=== PATIENT | female | born 1965 | race Caucasian/White ===

== ENCOUNTER 2017-03-14 10:36 | Inpatient (IN) | payer MEDICAID ==
[~2017-03-14] VITALS: Ht 165.1 cm; Wt 121.5 kg
[~2017-03-14 10:36] MED LIST: AMLO10TA2 PO; COUMADIN; ENAL20TA70 PO; IBUP600T27 PO; NORCO; PAXIL PO; RABE20TA5 PO; TRAZ100T2 PO
[2017-03-14 12:16] LABS: Urine Blood Negative /uL (Negative); Urine Color Red (Yellow); Urine Glucose Normal (Normal); Urine Ketone Negative (Negative); Urine Mucus FEW (None Seen); Urine Nitrite Negative (Negative); Urine RBC 3 /hpf (0 - 4); Urine Squamous Epithelial Cell MANY /hpf (<5)
[2017-03-14 12:32] LABS: Urine Bilirubin POSITIVE (Negative)
[2017-03-14 12:37] LABS: Basophils # (auto) 0 uL; Basophils % (auto) 0.4 % (0.0-2.0); CONDITION Y; Eosinophils # (auto) 0 uL; Eosinophils % (auto) 0.3 % (0.0-7.0); Hematocrit 39.6 % (36.0-46.0); Hemoglobin 13.3 g/dL (12.2-16.2); Lymphocytes # (auto) 1.2 uL; Lymphocytes % (auto) 15.2 % (10.0-50.0); Mean Corpuscular Hemoglobin 31.3 pg (28.0-32.0); Mean Corpuscular Hgb Conc. 33.7 g/dL (32.0-36.0); Mean Corpuscular Volume 92.9 fL (80.0-100.0); Mean Platelet Volume 8.6 fL (7.4-10.4); Monocytes # (auto) 0.4 uL; Monocytes % (auto) 5.5 % (0.0-12.0); Neutrophils # (auto) 6.4 uL; Neutrophils % (auto) 78.6 % (37.0-80.0); Platelet Count (auto) 333 10^3/uL (140-450); Red Cell Distribution Width 13.5 % (11.6-16.0); White Blood Cell 8.1 10^3/uL (4.4-10.8)
[2017-03-14 12:39] LABS: INR 1.05 (0.9-1.15); Partial Thromboplastin Time 29.9 sec (22.64-33.71); Prothrombin Time 11.4 sec (9.37-12.3)
[2017-03-14 12:49] LABS: BUN/Creatinine Ratio 11.1; Bilirubin, Total 0.3 mg/dL (0.2-1.0); Calcium 8.7 mg/dL (8.5-10.1); Magnesium 1.9 mg/dL (1.6-2.6); Potassium 3.3 mmol/L (3.5-5.1); Total Protein 6.9 g/dL (6.4-8.2)
[2017-03-14] MEDS ORDERED: cefTRIAXone 1GM/50ML D5W 50 ML IV ONE (13:00)
[2017-03-14] MEDS ORDERED: ENOXAPARIN SOD 100 MG/1 ML SYRINGE SC ONE (13:00)
[2017-03-14] MEDS ORDERED: ALBUTEROL SULF 2.5 MG/0.5ML(0.5%) NEB SOLN NEB PRN (13:15)
[2017-03-14] MEDS ORDERED: ZOLPIDEM TARTRATE 5 MG TAB PO PRN (13:15)
[2017-03-14] MEDS ORDERED: ALPRAZolam 0.5 MG TAB PO PRN (13:15)
[2017-03-14] MEDS ORDERED: SUMAtriptan SUCCINATE 25 MG TAB PO PRN (13:15)
[2017-03-14] MEDS: GABAPENTIN 100 MG CAP PO SCH ×2 (13:28→22:25)
[2017-03-14] MEDS: CLINDAMYCIN 300MG IV 50 ML IV SCH ×2 (13:28→22:24)
[2017-03-14] MEDS: ENOXAPARIN SOD 40 MG/0.4 ML SYRINGE SC SCH (13:29)
[2017-03-14] MEDS ORDERED: DOCUSATE SOD 100 MG CAP PO PRN (13:30)
[2017-03-14] MEDS ORDERED: MORPHINE SULF INJ 2 MG/ML SYRINGE 1ML IV PRN (13:30)
[2017-03-14] MEDS ORDERED: HYDROcodone-ACET 5/325MG TAB PO PRN (13:30)
[2017-03-14] MEDS ORDERED: ACETAMINOPHEN 325 MG TAB PO PRN (13:30)
[2017-03-14] MEDS ORDERED: ONDANSETRON HCL 4 MG/2 ML VIAL IV PRN (13:30)
[2017-03-14] MEDS ORDERED: POTASSIUM CHLORIDE 8 MEQ TAB PO ONE (13:30)
[2017-03-14] MEDS ORDERED: ENALAPRIL MALEATE 10 MG TAB PO ONE (13:45)
[2017-03-14] MEDS ORDERED: amLODIPine BESYLATE 5 MG TAB PO ONE (13:45)
[2017-03-14 13:47] LABS: B-Type Natriuretic Peptide 16.06 pg/mL (0-100)
[2017-03-14] MEDS: SODIUM CHLOR 0.9% PF (SALINE LOCK) 10ML VIAL IV SCH ×2 (14:22→22:24)
[2017-03-14 14:57] LABS: Temperature: 24.6 C (20.0-25.0)
[2017-03-14] MEDS: BOOST PLUS 8 ounce PO SCH (18:29)
[2017-03-14] MEDS: ENALAPRIL MALEATE 10 MG TAB PO SCH (22:00)
[2017-03-14] MEDS ORDERED: FAMOTIDINE 20 MG TAB PO SCH (22:00)
[2017-03-15 01:39] VITALS: BP 111/59
[2017-03-15] MEDS ORDERED: SUMA50TA16 PO (02:57)
[2017-03-15] MEDS ORDERED: EST0625T PO (02:59)
[2017-03-15] MEDS ORDERED: GABA-494 PO (03:01)
[2017-03-15] MEDS ORDERED: HYDR12.56 PO (03:02)
[2017-03-15] MEDS ORDERED: ZOLP5TAB5 PO (03:05)
[2017-03-15] MEDS ORDERED: ALPR1TAB7 PO (03:06)
[2017-03-15 05:30] VITALS: BP 114/68
[2017-03-15] MEDS: CLINDAMYCIN 300MG IV 50 ML IV SCH ×3 (05:48→22:21)
[2017-03-15] MEDS: SODIUM CHLOR 0.9% PF (SALINE LOCK) 10ML VIAL IV SCH ×3 (05:49→22:23)
[2017-03-15] MEDS: GABAPENTIN 100 MG CAP PO SCH ×3 (05:49→22:22)
[2017-03-15 06:18] LABS: Basophils # (auto) 0 uL; Basophils % (auto) 0.5 % (0.0-2.0); CONDITION Y; Eosinophils # (auto) 0.2 uL; Hematocrit 37.7 % (36.0-46.0); Hemoglobin 12.8 g/dL (12.2-16.2); Lymphocytes # (auto) 1.7 uL; Lymphocytes % (auto) 21.4 % (10.0-50.0); Mean Corpuscular Hemoglobin 31.8 pg (28.0-32.0); Mean Corpuscular Hgb Conc. 33.9 g/dL (32.0-36.0); Mean Corpuscular Volume 93.9 fL (80.0-100.0); Mean Platelet Volume 8.8 fL (7.4-10.4); Monocytes # (auto) 0.7 uL; Monocytes % (auto) 9.1 % (0.0-12.0); Neutrophils # (auto) 5.2 uL; Platelet Count (auto) 321 10^3/uL (140-450); Red Cell Distribution Width 13.8 % (11.6-16.0); White Blood Cell 7.8 10^3/uL (4.4-10.8)
[2017-03-15 06:38] LABS: Potassium 4.1 mmol/L (3.5-5.1)
[2017-03-15 06:42] LABS: Albumin 2.8 g/dL (3.4-5.0); BUN/Creatinine Ratio 13.8; Calcium 8.5 mg/dL (8.5-10.1)
[2017-03-15 06:56] LABS: Bilirubin, Total 0.3 mg/dL (0.2-1.0); Total Protein 6.4 g/dL (6.4-8.2)
[2017-03-15] MEDS: BOOST PLUS 8 ounce PO SCH ×3 (08:03→17:47)
[2017-03-15 09:00] VITALS: BP 126/74
[2017-03-15] MEDS: HCTZ 25 MG TAB PO SCH (09:16)
[2017-03-15] MEDS: MULTIPLE VITAMIN TAB PO SCH (09:17)
[2017-03-15] MEDS: ENOXAPARIN SOD 40 MG/0.4 ML SYRINGE SC SCH (09:17)
[2017-03-15] MEDS: PANTOPRAZOLE 40 MG TAB PO SCH (09:17)
[2017-03-15] MEDS: PARoxetine 20 MG TAB PO SCH (09:18)
[2017-03-15] MEDS: ENALAPRIL MALEATE 10 MG TAB PO SCH ×3 (09:18→22:23)
[2017-03-15] MEDS: cefTRIAXone 1GM/50ML D5W 50 ML IV SCH (09:19)
[2017-03-15] MEDS: amLODIPine BESYLATE 5 MG TAB PO SCH (09:19)
[2017-03-15] MEDS: POTASSIUM CHLORIDE 8 MEQ TAB PO SCH (09:19)
[2017-03-15] MEDS: PREMARIN 0.625 MG PO SCH (09:19)
[2017-03-15] MEDS ORDERED: ESTROGEN CONJ 0.3 MG TAB PO SCH (10:00)
[2017-03-15 13:00] VITALS: BP 131/93
[2017-03-15 22:00] VITALS: BP 115/63
[2017-03-16 05:00] VITALS: BP 96/50
[2017-03-16] MEDS: SODIUM CHLOR 0.9% PF (SALINE LOCK) 10ML VIAL IV SCH ×2 (06:00→14:00)
[2017-03-16] MEDS: CLINDAMYCIN 300MG IV 50 ML IV SCH ×2 (06:32→14:00)
[2017-03-16] MEDS: GABAPENTIN 100 MG CAP PO SCH ×2 (06:32→14:00)
[2017-03-16] MEDS: BOOST PLUS 8 ounce PO SCH ×2 (08:00→12:00)
[2017-03-16 09:00] VITALS: BP_SYST 119; BP_SYST 130; BP_DIAS 62; BP_DIAS 89
[2017-03-16] MEDS: ENOXAPARIN SOD 40 MG/0.4 ML SYRINGE SC SCH (09:15)
[2017-03-16] MEDS: cefTRIAXone 1GM/50ML D5W 50 ML IV SCH (09:15)
[2017-03-16] MEDS: POTASSIUM CHLORIDE 8 MEQ TAB PO SCH (09:16)
[2017-03-16] MEDS: PANTOPRAZOLE 40 MG TAB PO SCH (09:16)
[2017-03-16] MEDS: PARoxetine 20 MG TAB PO SCH (09:16)
[2017-03-16] MEDS: MULTIPLE VITAMIN TAB PO SCH (09:21)
[2017-03-16] MEDS: PREMARIN 0.625 MG PO SCH (09:42)
[2017-03-16] MEDS: ENALAPRIL MALEATE 10 MG TAB PO SCH (10:00)
[2017-03-16] MEDS: HCTZ 25 MG TAB PO SCH (10:00)
[2017-03-16] MEDS: amLODIPine BESYLATE 5 MG TAB PO SCH (10:00)
[2017-03-16 13:00] VITALS: BP 116/85
== END 2017-03-16 17:25 | disposition home or self-care (01) | DRG 383 ==
LOC: ER 10:36 → OVERFLOW 10:37 → EAST 16:56 → WEST WING 19:21
PROVIDERS: ADMIT Internal Medicine; ATTEND Internal Medicine
DX: L03.116 Cellulitis of left lower limb (principal); E44.0 Moderate protein-calorie malnutrition; N18.3 Chronic kidney disease, stage 3 (moderate); Z68.41 Body mass index [BMI] 40.0-44.9, adult; E66.01 Morbid (severe) obesity due to excess calories; I89.0 Lymphedema, not elsewhere classified; E87.6 Hypokalemia; I12.9 Hypertensive chronic kidney disease with stage 1 through stage 4 chronic kidney disease, or unspecified chronic kidney disease; F32.9 Major depressive disorder, single episode, unspecified; J45.909 Unspecified asthma, uncomplicated; N39.0 Urinary tract infection, site not specified; K21.9 Gastro-esophageal reflux disease without esophagitis; F41.9 Anxiety disorder, unspecified; Z90.710 Acquired absence of both cervix and uterus; Z98.890 Other specified postprocedural states; Z88.8 Allergy status to other drugs, medicaments and biological substances; Z88.6 Allergy status to analgesic agent; Z85.41 Personal history of malignant neoplasm of cervix uteri; Z86.718 Personal history of other venous thrombosis and embolism; Z86.73 Personal history of transient ischemic attack (TIA), and cerebral infarction without residual deficits; Z83.3 Family history of diabetes mellitus; Z82.49 Family history of ischemic heart disease and other diseases of the circulatory system; Z80.9 Family history of malignant neoplasm, unspecified; Z88.1 Allergy status to other antibiotic agents; Z91.041 Radiographic dye allergy status; Z79.899 Other long term (current) drug therapy; Z85.89 Personal history of malignant neoplasm of other organs and systems; Z90.49 Acquired absence of other specified parts of digestive tract; Z80.1 Family history of malignant neoplasm of trachea, bronchus and lung
CPT/HCPCS: 36415; 71010; 80053; 81001; 83605; 83735; 83880; 85025; 85379; 85610; 85730; 87040; 87086; 93005; 94761; 96365; 96372; J0696; J3490

== ENCOUNTER 2019-01-12 17:26 | Emergency (ER) | payer MEDICAID ==
[~2019-01-12] VITALS: Ht 177.8 cm; Wt 127.0 kg
[~2019-01-12 17:26] MED LIST changes: +ALPR1TAB7 PO; +AMLO10TA12 PO; -AMLO10TA2 PO; +EST0625T PO; +GABA100C9 PO; +HYDR12.56 PO; +SUMA50TA16 PO; +ZOLP5TAB5 PO
[2019-01-12] MEDS ORDERED: METOCLOPRAMIDE HCL 5MG/ml INJ 2ml VIAL ONE (18:35)
[2019-01-12] MEDS ORDERED: METOCLOPRAMIDE HCL 5MG/ml INJ 2ml VIAL IV ONE (18:45)
[2019-01-12] MEDS ORDERED: ONDANSETRON HCL 4 MG/2 ML VIAL IV ONE (20:00)
[2019-01-12] MEDS ORDERED: SODIUM CHLORIDE 0.9% 1,000 ML IV ONE (20:00)
[2019-01-12] MEDS ORDERED: SODIUM CHLORIDE 0.9% 500 ML IV ONE (20:00)
[2019-01-12] MEDS ORDERED: MORPHINE SULF INJ 2 MG/ML SYRINGE 1ML IV ONE (20:00)
[2019-01-12 21:02] LABS: Basophils # (auto) 0.1 uL; Basophils % (auto) 0.6 % (0.0-2.0); Eosinophils # (auto) 0.2 uL; Eosinophils % (auto) 1.7 % (0.0-7.0); Hematocrit 40.9 % (36.0-46.0); Hemoglobin 13.6 g/dL (12.2-16.2); Lymphocytes # (auto) 1.3 uL; Lymphocytes % (auto) 12.7 % (10.0-50.0); Mean Corpuscular Hemoglobin 30.5 pg (28.0-32.0); Mean Corpuscular Hgb Conc. 33.3 g/dL (32.0-36.0); Mean Corpuscular Volume 91.7 fL (80.0-100.0); Monocytes # (auto) 0.4 uL; Monocytes % (auto) 3.6 % (0.0-12.0); Neutrophils # (auto) 8.3 uL; Neutrophils % (auto) 81.4 % (37.0-80.0); Platelet Count (auto) 312 10^3/uL (140-450); Red Blood Cells 4.46 10^6/uL (4.0-5.20); Red Cell Distribution Width 13.6 % (11.8-14.3); White Blood Cell 10.2 10^3/uL (4.4-10.8)
[2019-01-12 21:23] LABS: Albumin 3.4 g/dL (3.4-5.0); Calcium 9.1 mg/dL (8.5-10.1)
[2019-01-12 21:27] LABS: BUN/Creatinine Ratio 19.6; Bilirubin, Total 0.6 mg/dL (0.2-1.0); Total Protein 7.2 g/dL (6.4-8.2)
[2019-01-13] MEDS ORDERED: ONDANSETRON HCL 4 MG/2 ML VIAL ONE (00:13)
[2019-01-13] MEDS ORDERED: ONDANSETRON HCL 4 MG/2 ML VIAL IV ONE (00:45)
[2019-01-13 01:12] VITALS: BP 149/86
== END 2019-01-13 02:07 | disposition home or self-care (01) ==
LOC: ER 17:26
DX: G43.909 Migraine, unspecified, not intractable, without status migrainosus (principal); R42 Dizziness and giddiness; J45.909 Unspecified asthma, uncomplicated; K21.9 Gastro-esophageal reflux disease without esophagitis; I10 Essential (primary) hypertension; F41.9 Anxiety disorder, unspecified; F12.10 Cannabis abuse, uncomplicated; F15.10 Other stimulant abuse, uncomplicated; Z90.710 Acquired absence of both cervix and uterus
CPT/HCPCS: 36415; 70450; 80053; 85025; 94761; 96361; 96374; 96375; 96376; 99284; J2270; J2405; J2765; J7030; J7040

== ENCOUNTER 2020-03-14 17:50 | Inpatient (IN) | payer MEDICAID ==
[~2020-03-14] VITALS: Ht 170.2 cm; Wt 143.6 kg
[~2020-03-14 17:50] MED LIST changes: -AMLO10TA12 PO; +AMLO10TA13 PO; +AMOX500T86 PO; -COUMADIN; -ENAL20TA70 PO; +ENAL20TA8 PO; -IBUP600T27 PO; -NORCO; -PAXIL PO; +RIV20T PO; -TRAZ100T2 PO; +TRAZ100T3 PO; -ZOLP5TAB5 PO
[2020-03-14 19:35] LABS: Basophils # (auto) 0.1 10 ^3/uL (0-0.2); Basophils % (auto) 0.5 % (0.0-2.0); Eosinophils # (auto) 0 10 ^3/uL (0-0.8); Eosinophils % (auto) 0.1 % (0.0-7.0); Hematocrit 44.3 % (36.0-46.0); Hemoglobin 14.7 g/dL (12.2-16.2); Lymphocytes # (auto) 0.6 10 ^3/uL (0.4-5.4); Lymphocytes % (auto) 4.5 % (10.0-50.0); Mean Corpuscular Hemoglobin 31.1 pg (28.0-32.0); Mean Corpuscular Hgb Conc. 33.2 g/dL (32.0-36.0); Mean Corpuscular Volume 93.6 fL (80.0-100.0); Monocytes # (auto) 0.3 10 ^3/uL (0-1.3); Monocytes % (auto) 2.3 % (0.0-12.0); Neutrophils # (auto) 13.2 10 ^3/uL (1.6-8.6); Neutrophils % (auto) 92.6 % (37.0-80.0); Platelet Count (auto) 318 10^3/uL (140-450); Red Blood Cells 4.73 10^6/uL (4.0-5.20); Red Cell Distribution Width 13.6 % (11.8-14.3); White Blood Cell 14.2 10^3/uL (4.4-10.8)
[2020-03-14 19:45] LABS: Albumin 3.7 g/dL (3.4-5.0); BUN/Creatinine Ratio 14.8; Potassium 4.2 mmol/L (3.5-5.1)
[2020-03-14 19:48] LABS: Bilirubin, Total 0.6 mg/dL (0.2-1.0); Total Protein 8.3 g/dL (6.4-8.2)
[2020-03-15] MEDS ORDERED: SODIUM CHLORIDE 0.9% 1,000 ML IV ONE (01:15)
[2020-03-15] MEDS ORDERED: ONDANSETRON HCL 4 MG/2 ML VIAL IV ONE (01:15)
[2020-03-15] MEDS ORDERED: MORPHINE SULFATE 4 MG/ML SYR/VIAL IV ONE (01:15)
[2020-03-15] MEDS ORDERED: PIPERACILLIN-TAZOB 3.375GM 100 ML IV ONE (05:15)
[2020-03-15] MEDS ORDERED: ALBUTEROL SULF 2.5 MG/0.5ML(0.5%) NEB SOLN NEB PRN (05:45)
[2020-03-15] MEDS ORDERED: HYDROcodone-ACET 5/325MG TAB PO PRN (05:45)
[2020-03-15] MEDS ORDERED: IPRATROPIUM BROM 0.5 MG/2.5ML INH SOL NEB PRN (05:45)
[2020-03-15] MEDS ORDERED: TEMAZEPAM 15 MG CAP PO PRN (05:45)
[2020-03-15] MEDS ORDERED: METOCLOPRAMIDE HCL 5MG/ml INJ 2ml VIAL IV PRN (05:45)
[2020-03-15] MEDS ORDERED: LORazepam 0.5 MG TAB PO PRN (05:45)
[2020-03-15] MEDS ORDERED: MORPHINE SULF INJ 2 MG/ML SYRINGE 1ML IV PRN (05:45)
[2020-03-15] MEDS ORDERED: DOCUSATE SOD 100 MG CAP PO PRN (05:45)
[2020-03-15] MEDS ORDERED: SODIUM CHLORIDE 0.9% 1,000 ML IV SCH (05:45)
[2020-03-15 06:11] VITALS: BP 116/66
[2020-03-15 07:47] LABS: Basophils # (auto) 0 10 ^3/uL (0-0.2); Basophils % (auto) 0.4 % (0.0-2.0); Eosinophils # (auto) 0 10 ^3/uL (0-0.8); Eosinophils % (auto) 0.1 % (0.0-7.0); Hematocrit 40.7 % (36.0-46.0); Hemoglobin 13.5 g/dL (12.2-16.2); Lymphocytes # (auto) 0.9 10 ^3/uL (0.4-5.4); Lymphocytes % (auto) 7.7 % (10.0-50.0); Mean Corpuscular Hemoglobin 31.3 pg (28.0-32.0); Mean Corpuscular Hgb Conc. 33.2 g/dL (32.0-36.0); Monocytes # (auto) 0.5 10 ^3/uL (0-1.3); Monocytes % (auto) 4.1 % (0.0-12.0); Neutrophils # (auto) 9.7 10 ^3/uL (1.6-8.6); Neutrophils % (auto) 87.7 % (37.0-80.0); Nucleated Red Blood Cells % 0.1 %; Platelet Count (auto) 272 10^3/uL (140-450); Red Blood Cells 4.33 10^6/uL (4.0-5.20); Red Cell Distribution Width 13.7 % (11.8-14.3)
[2020-03-15 07:55] LABS: Calcium 6.8 mg/dL (8.5-10.1)
[2020-03-15 07:58] LABS: BUN/Creatinine Ratio 12.3
[2020-03-15] MEDS: CLINDAMYCIN 600MG IV 50 ML IV SCH ×4 (09:11→23:47)
--- NOTE | 2020-03-15 09:50 | NUR ---
MS admit from ER: DAYANNA NGUYEN admitted to [facility] after SBAR received. Patient oriented to AYDEE AQUINO RN primary RN, unit, room, bed, and unit policies regarding patient care and visiting hours. Patient weighed by bed scale and encouraged to call if they need something. All questions and concerns addressed, patient verbalized understanding. CALL LIGHT WITHIN REACH.
[2020-03-15] MEDS ORDERED: LISINOPRIL 20 MG TAB PO SCH (10:00)
--- NOTE | 2020-03-15 10:20 | NUR ---
ADMISSION ASSESSMENT PT STATES "I DO NOT HAVE INSURANCE AT THE TIME AND I AM UNABLE TO FILL ANY OF MY MEDICATION" Addendum: 03/15/20 at 1021 by SHIRA TIM RN RN PRIMARY RN AWARE AND SOCIAL SERVICE CONSULT INITIATED
[2020-03-15] MEDS: cefTRIAXone 1GM/50ML D5W 50 ML IV SCH (10:28)
[2020-03-15 13:00] VITALS: BP 114/60
[2020-03-15] MEDS ORDERED: ENOXAPARIN SOD 150 MG/1 ML SYRINGE SC ONE (13:15)
[2020-03-15] MEDS: ACETAMINOPHEN 325 MG TAB PO PRN (14:08)
--- NOTE | 2020-03-15 15:09 | NUR ---
Patient provided with specimen cup for urine sample
[2020-03-15 16:34] VITALS: BP 109/62
--- NOTE | 2020-03-15 18:44 | NUR ---
CLOSING NOTE: Patient resting in bed. No S/S of distress. Care endorsed to NOC RN.
--- NOTE | 2020-03-15 19:30 | NUR ---
OPENING NOTE Received report from day shift RN. Patient is A&O X's 4 with no s/s of distress and reports no pain at the moment. Respirations are even and unlabored. Collected urine sample at this time and will send it to lab through [employer]t system. Educated patient on POC and to use call light when in need of assistance. Patient verbalized understanding. Bed is in lowest/locked position with side rails up X's 2 and call light is within reach of patient. Will continue care.
[2020-03-15 20:24] LABS: Urine Bacteria FEW /hpf (None Seen); Urine Blood Negative /uL (Negative); Urine Mucus FEW (None Seen); Urine Specific Gravity 1.019 (1.001-1.035); Urine WBC 27 /hpf (0 - 5)
[2020-03-15 20:27] LABS: Alcohol, Urine < 3.0 mg/dL (0-10); Amphetamine Screen, Urine NEGATIVE (NEGATIVE); Barbiturate Scree,Urine NEGATIVE (NEGATIVE); Benzodiazephine Screen, Urine NEGATIVE (NEGATIVE); Cannabinoid Screen, Urine NEGATIVE (NEGATIVE); Cocaine Screen, Urine NEGATIVE (NEGATIVE); Opiate Scree,Urine NEGATIVE (NEGATIVE); Phencyclidine Screen, Urine NEGATIVE (NEGATIVE)
[2020-03-15] MEDS: FAMOTIDINE 20 MG TAB PO SCH (21:14)
[2020-03-15] MEDS: ENOXAPARIN SOD 150 MG/1 ML SYRINGE SC SCH (21:16)
--- NOTE | 2020-03-15 21:55 | NUR ---
Respiratory note: ASSEDDED PATIENT FOR PRN . PT WAS AWAKE AND ALER, NO RESP DISTRESS NOTED. HR 72, RR 16, SPO2 Addendum: 03/15/20 at 2254 by Hilda Whaley RT ASSESSED PT FOR PRN TX PT WAS AWAKE AND ALERT, NO RESP DISTRESS NOTED. SPO2 95% ON ROOM AIR, RR 16, HR 72. BS ARE CLEAR, NO INDICATION FOR TX AT THIS TIME.
[2020-03-15 22:00] VITALS: BP 101/58
--- NOTE | 2020-03-15 23:10 | NUR ---
CRITICAL LAB- POSITIVE BLOOD CULTURE GRAM POSITIVE COCCI IN CHAINS. WILL CALL HOSPITALIST
--- NOTE | 2020-03-15 23:17 | NUR ---
RETURNED CALL Dr. Rendon informed of positive blood culture. No new orders received
[2020-03-16 05:00] VITALS: BP 117/49
[2020-03-16] MEDS: CLINDAMYCIN 600MG IV 50 ML IV SCH ×4 (05:40→23:56)
[2020-03-16 06:01] LABS: Basophils # (auto) 0 10 ^3/uL (0-0.2); Basophils % (auto) 0.4 % (0.0-2.0); Eosinophils # (auto) 0.1 10 ^3/uL (0-0.8); Eosinophils % (auto) 1.6 % (0.0-7.0); Hematocrit 40.3 % (36.0-46.0); Lymphocytes # (auto) 1.6 10 ^3/uL (0.4-5.4); Lymphocytes % (auto) 20.8 % (10.0-50.0); Mean Corpuscular Hemoglobin 30.5 pg (28.0-32.0); Mean Corpuscular Hgb Conc. 32.2 g/dL (32.0-36.0); Mean Corpuscular Volume 94.7 fL (80.0-100.0); Monocytes # (auto) 0.5 10 ^3/uL (0-1.3); Monocytes % (auto) 6.6 % (0.0-12.0); Neutrophils # (auto) 5.6 10 ^3/uL (1.6-8.6); Neutrophils % (auto) 70.6 % (37.0-80.0); Nucleated Red Blood Cells % 0.1 %; Platelet Count (auto) 244 10^3/uL (140-450); Red Blood Cells 4.25 10^6/uL (4.0-5.20); White Blood Cell 7.9 10^3/uL (4.4-10.8)
[2020-03-16 06:18] LABS: Potassium 3.8 mmol/L (3.5-5.1)
--- NOTE | 2020-03-16 06:28 | NUR ---
Respiratory note: HR 74, RR 16, SPO2 93% ON RA, BS CLEAR AND SLIGHTLY DIMINISHED. PRN MED NEB TX NOT INDICATED AT THIS TIME. NO SIGNS OR SYMPTOMS OF RESPIRATORY DISTRESS NOTED AT THIS TIME.
[2020-03-16 06:29] LABS: BUN/Creatinine Ratio 13.3; Calcium 8.1 mg/dL (8.5-10.1)
--- NOTE | 2020-03-16 07:00 | NUR ---
Opening Shift Note: Assumed care of patient. Patient sleeping at this time. No S/S of distress/SOB or pain. Bed in lowest locked position, side rails up x 2, call light within reach. Sitter at bedside for patient safety. Patient will be instructed on POC and to call for assist PRN, will continue to monitor for changes Q1hr and PRN. Addendum: 03/16/20 at 0708 by AYDEE AQUINO RN RN Wrong patient. No sitter at bedside.
[2020-03-16 08:49] VITALS: BP 97/61
[2020-03-16] MEDS: FAMOTIDINE 20 MG TAB PO SCH ×2 (10:10→21:38)
[2020-03-16] MEDS: cefTRIAXone 1GM/50ML D5W 50 ML IV SCH (10:11)
[2020-03-16] MEDS: ENOXAPARIN SOD 150 MG/1 ML SYRINGE SC SCH ×2 (10:11→21:37)
[2020-03-16] MEDS ORDERED: SODIUM CHLORIDE 0.9% 1,000 ML IV ONE (12:30)
[2020-03-16] MEDS: ACETAMINOPHEN 325 MG TAB PO PRN ×2 (12:37→21:38)
[2020-03-16 13:00] VITALS: BP 131/75
[2020-03-16 17:00] VITALS: BP 96/61
--- NOTE | 2020-03-16 18:47 | NUR ---
CLOSING NOTE: patient resting in bed. No S/S of distress. Care endorsed.
[2020-03-16 22:00] VITALS: BP 103/67
[2020-03-17 05:28] VITALS: BP_SYST 108; BP_SYST 138; BP_DIAS 57; BP_DIAS 63
[2020-03-17] MEDS: CLINDAMYCIN 600MG IV 50 ML IV SCH ×4 (05:57→23:59)
[2020-03-17 06:21] LABS: Potassium 4.1 mmol/L (3.5-5.1)
[2020-03-17 06:23] LABS: BUN/Creatinine Ratio 15.4
--- NOTE | 2020-03-17 07:45 | NUR ---
Opening Note Received report from post hole digger RN. Patient is awake, alert and oriented x4. No signs or symptoms of distress noted at this time. Patient denies pain or shortness of breath at this time. Reviewed plan of care with patient, patient verbalized understanding. Bed in low and locked position, call light within reach. Will continue to monitor Q1 hour and PRN.
[2020-03-17] MEDS: ENOXAPARIN SOD 150 MG/1 ML SYRINGE SC SCH ×2 (09:24→21:51)
[2020-03-17] MEDS: cefTRIAXone 1GM/50ML D5W 50 ML IV SCH (09:24)
[2020-03-17] MEDS: FAMOTIDINE 20 MG TAB PO SCH ×2 (09:25→21:51)
[2020-03-17] MEDS: ONDANSETRON HCL 4 MG/2 ML VIAL IV PRN (09:44)
--- NOTE | 2020-03-17 09:45 | NUR ---
Nausea Patient complains of feeling nauseous and is requesting medications. Will medicate per orders. Will continue to monitor Q1 hour and PRN.
--- NOTE | 2020-03-17 11:10 | NUR ---
Dr. Mario Albetro Espitia at bedside MD at bedside discussing plan of care with patient and this RN. No new orders received. Will continue to monitor Q1 hour and PRN.
--- NOTE | 2020-03-17 19:02 | NUR ---
Closing Note Report given to lath hand RN. No signs or symptoms of distress noted at this time.
[2020-03-17 22:00] VITALS: BP 123/79
[2020-03-18 05:00] VITALS: BP 117/70
[2020-03-18] MEDS: CLINDAMYCIN 600MG IV 50 ML IV SCH (05:56)
[2020-03-18] MEDS: ONDANSETRON HCL 4 MG/2 ML VIAL IV PRN (08:20)
[2020-03-18 09:00] VITALS: BP 116/87
[2020-03-18] MEDS ORDERED: ONDA-144 PO (09:42)
[2020-03-18] MEDS ORDERED: CLIN150C7 PO (09:42)
[2020-03-18] MEDS ORDERED: CLIN300C8 PO (09:42)
[2020-03-18] MEDS ORDERED: ASPI81CH43 PO (09:44)
[2020-03-18] MEDS ORDERED: cefTRIAXone 1GM/50ML D5W 50 ML IV SCH (10:00)
[2020-03-18] MEDS ORDERED: levoFLOXacin 750MG 150 ML IV SCH (10:00)
[2020-03-18] MEDS: FAMOTIDINE 20 MG TAB PO SCH (10:03)
[2020-03-18] MEDS: ENOXAPARIN SOD 150 MG/1 ML SYRINGE SC SCH (10:03)
--- NOTE | 2020-03-18 13:11 | NUR ---
Discharge Went over all discharge paperwork with patient. Answered all questions. Prescriptions called into patients pharmacy by MD. Removed IV; intact, no problems. No tele, MS patient. Patient drove herself to the hospital and stated she was fine to drive herself home. Denies any pain in her leg.
[2020-03-18] MEDS ORDERED: CLINDAMYCIN HCL 150 MG CAP PO SCH (14:00)
--- NOTE | 2020-03-18 14:20 | NUR ---
assessment re: ss consult Patient is a 54 year old female who is alert and oriented. Patients cognitive abilities are intact. Prior to admission patient lived home with family and functioned independently. Patient informed me she is able to care for her own ADLs. Per patient she will return home to her prior living arrangements post discharge and family will transport her home. Patient has no insurance. Patient has been assessed by Edwin Storm of [facility]. Patients medi-lia status is pending. I have provided patient with resources for [facility], Dr. Glaser, and [facility] urgent care for follow up visits. I have provided patient with a prescription card from community assistance program. Patient has no post discharge needs identified. I informed patient she has a right to speak to a social work therapist regarding all care. I informed patient she has a right to participate in any and all discharge planning. Patient does not have a POA and advanced directive. I have offered patient information on POA and advanced directives. I informed the patient the advantages and benefits of having an Advanced Directive. Patient verbalized understanding and agreed to discharge plan. Addendum: 03/18/20 at 1422 by Kassie SALGADO Amended: Links added.
== END 2020-03-18 14:05 | disposition home or self-care (01) | DRG 383 ==
LOC: ER 17:50 → OVERFLOW 17:51 → WEST WING 03-15 09:51
PROVIDERS: ADMIT Hospitalist; ATTEND Internal Medicine
DX: L03.116 Cellulitis of left lower limb (principal); N17.0 Acute kidney failure with tubular necrosis; E66.01 Morbid (severe) obesity due to excess calories; G62.9 Polyneuropathy, unspecified; F41.9 Anxiety disorder, unspecified; Z68.42 Body mass index [BMI] 45.0-49.9, adult; K21.9 Gastro-esophageal reflux disease without esophagitis; I12.9 Hypertensive chronic kidney disease with stage 1 through stage 4 chronic kidney disease, or unspecified chronic kidney disease; L04.9 Acute lymphadenitis, unspecified; B95.5 Unspecified streptococcus as the cause of diseases classified elsewhere; J45.909 Unspecified asthma, uncomplicated; N18.3 Chronic kidney disease, stage 3 (moderate); Z80.9 Family history of malignant neoplasm, unspecified; Z85.41 Personal history of malignant neoplasm of cervix uteri; Z86.718 Personal history of other venous thrombosis and embolism; Z90.710 Acquired absence of both cervix and uterus; Z88.8 Allergy status to other drugs, medicaments and biological substances; Z88.6 Allergy status to analgesic agent; Z91.041 Radiographic dye allergy status; Z90.49 Acquired absence of other specified parts of digestive tract
CPT/HCPCS: 36415; 74176; 80048; 80053; 80061; 80307; 81001; 83036; 83605; 83880; 85025; 85379; 87040; 87077; 87086; 87186; 93971; G0378; J0696; J2405; J2543; J3490

== ENCOUNTER 2022-01-11 16:45 | Emergency (ER) | payer MEDICAID ==
[~2022-01-11] VITALS: Ht 170.2 cm; Wt 158.8 kg
[~2022-01-11 16:45] MED LIST changes: -AMLO10TA13 PO; -AMOX500T86 PO; +ASPI81CH43 PO; +CLIN150C8 PO; +CLIN300C8 PO; -ENAL20TA8 PO; -EST0625T PO; -HYDR12.56 PO; +ONDA-144 PO; +RABE20TA19 PO; -RABE20TA5 PO; -RIV20T PO
[2022-01-11 17:23] VITALS: BP 130/84
[2022-01-11] MEDS ORDERED: CLIN150C PO (20:01)
== END 2022-01-11 21:07 | disposition home or self-care (01) ==
LOC: ER 16:45
DX: I89.0 Lymphedema, not elsewhere classified (principal); L03.116 Cellulitis of left lower limb
CPT/HCPCS: 93971

== ENCOUNTER 2023-06-25 15:07 | Emergency (ER) | payer SELFPAY ==
[~2023-06-25] VITALS: Ht 167.6 cm; Wt 158.1 kg
[~2023-06-25 15:07] MED LIST changes: +CLIN150C PO; +CLIN150C18 PO; -CLIN150C8 PO; +CLIN300C70 PO; -CLIN300C8 PO; +GABA-1308 PO; -GABA100C9 PO; +TRAZ-228 PO; -TRAZ100T3 PO
[2023-06-25] MEDS ORDERED: amLODIPine BESYLATE 5 MG TAB PO ONE (15:30)
[2023-06-25 17:10] VITALS: RESP 16; TEMP 98.5; O2SAT 95
[2023-06-25 17:11] VITALS: PULSE 95
[2023-06-25] MEDS ORDERED: cloNIDine HCL 0.1 MG TAB PO ONE ×2 (17:15→18:15)
[2023-06-25] MEDS ORDERED: CHLO25TA2 BC (18:12)
[2023-06-25 18:36] VITALS: BP 157/96
== END 2023-06-25 18:52 | disposition home or self-care (01) ==
LOC: ER 15:07
DX: I16.0 Hypertensive urgency (principal); K21.9 Gastro-esophageal reflux disease without esophagitis; J45.909 Unspecified asthma, uncomplicated; F41.9 Anxiety disorder, unspecified; Z85.9 Personal history of malignant neoplasm, unspecified; Z98.890 Other specified postprocedural states; Z88.8 Allergy status to other drugs, medicaments and biological substances; Z79.899 Other long term (current) drug therapy
CPT/HCPCS: 93005

== ENCOUNTER 2024-07-11 11:42 | Inpatient (IN) | payer MEDICAID ==
[~2024-07-11] VITALS: Ht 157.5 cm; Wt 156.6 kg
[~2024-07-11 11:42] MED LIST changes: +CHLO25TA2 BC; +CLIN1CAP70 PO; -CLIN300C70 PO
[2024-07-11] MEDS: KETOROLAC TROMETH 30 MG/ML 1ML VIAL IV ONE (13:30)
[2024-07-11] MEDS: SODIUM CHLORIDE 0.9% 500 ML IVB ONE (13:30)
[2024-07-11] MEDS: ONDANSETRON HCL 4 MG/2 ML VIAL IV ONE (13:30)
[2024-07-11] MEDS: MORPHINE SULFATE 4 MG/ML SYR/VIAL IV ONE (13:30)
--- NOTE | 2024-07-11 13:30 | ED.PDOC ---
History of Present Illness HPI Comments 59 y/o F, with a Hx of cervical CA in-remission s/p surgery, CKF III, DM uncontrolled, GERD, gout, HTN, TIA, morbid obesity, appendectomy, hysterectomy, and polysubstance abuse, presents with c/o left-sided flank pain and shortness of breath, today. Patient endorses on unprovoked onset of progressively worse rosalind symptoms for the past 3x days. She states also having an isolated episode of burning vaginal pain that resolved on its own, with initial onset of other symptoms, 3x days ago. Patient reports no additional relevant or pertinent Hx, such as injuries, with exception of recent hospitalization and pending cholecystectomy. She denies having any nausea, vomiting, urinary symptoms, fe osvaldo, chills, or other associated symptoms or modifiers at this time. Chief Complaint: Flank Pain Time Seen by MD: 13:00 Primary Care Provider: ? Reviewed Notes: Nurses Notes, Medications, Allergies Allergies: Coded Allergies: Aspirin (Verified Allergy, Unknown, 02/12/15) Bacitracin (Verified Allergy, Unknown, 02/12/15) Iodine (Verified Allergy, Unknown, 02/12/15) Neomycin (Verified Allergy, Unknown, 02/12/15) Polymyxin B (Verified Allergy, Unknown, 02/12/15) Home Meds Active Scripts Chlorthalidone (Chlorthalidone) 25 Mg Tab, 12.5 MG BC DAILY for 30 Days, #15 TAB 0 Refills Prov:MAGDIEL MACIAS NP 06/25/23 Clindamycin Hcl (CLEOCIN) 150 Mg Cap, 1 CAP PO QID, #40 CAP Prov:MARIANNE SHERMAN MD 01/11/22 Aspirin (Asa) 81 Mg Ch, 81 MG PO DAILY for 100 Days, #100 TAB Prov:JORDIN PABLO MD 03/18/20 Ondansetron (Zofran) 4 Mg Tab, 1 TAB PO Q6HR, #20 TAB 0 Refills Prov:JORDIN PABLO MD 03/18/20 Clindamycin Hcl (Clindamycin Hcl) 300 Mg Cap, 1 CAP PO TID for 4 Days, #12 CAP Prov:JORDIN PABLO MD 03/18/20 Clindamycin Hcl (Clindamycin Hcl) 150 Mg Cap, 150 MG PO TID for 4 Days, #12 CAP Prov:JORDIN PABLO MD 03/18/20 Reported Medications Alprazolam (Alprazolam) 1 Mg Tab, 1 TAB PO TID, #90 TAB 03/15/17 Gabapentin (Gabapentin) 100 Mg Cap, 100 MG PO TID 03/15/17 Sumatriptan Succinate (Sumatriptan Succinate) 50 Mg Tab, 50 MG PO DAILY, MG 03/15/17 Rabeprazole Sodium (Aciphex) 20 Mg Tab, 20 MG PO DAILY 08/16/12 Trazodone Hcl (Trazodone Hcl) 100 Mg Tab, 100 MG PO HS 08/16/12 Information Source: Patient Mode of Arrival: Ambulatory Severity: Moderate Timing: Days Duration: Since onset Prehospital treatment: None Past Medical History PAST MEDICAL HISTORY: Anxiety, Asthma, Cancer (cervical CA, in-remission s/p surgery ), CKF (stage III), DM (uncontrolled ), GERD, Gout, HTN, TIA Past Medical History (Other): morbid obesity Surgical History: Appendectomy, Hysterectomy [employer] History: Cervical Cancer Family History Family History: Family hx of DM, Family hx of Cancer, Family hx of lung monica Social History Smoker: Non-Smoker Alcohol: Sober Drugs: Other Lives In: Home Constitutional: denies: chills, diaphoresis, fatigue, fever, malaise, sweats, weakness, others EENTM: denies: blurred vision, double vision, ear bleeding, ear discharge, ear drainage, ear pain, ear ringing, eye pain, eye redness, hearing loss, mouth pain, mouth swelling, nasal discharge, nose bleeding, nose congestion, nose pain, photophobia, tearing, throat pain, throat swelling, voice changes, others Respiratory: reports: shortness of breath; denies: cough, hemoptysis, orthopnea, SOB at rest, SOB with excertion, stridor, wheezing, others Cardiovascular: denies: chest pain, dizzy spells, diaphoresis, Dyspnea on exertion, edema, irregular heart beat, left arm pain, lightheadedness, palpitations, PND, syncope, others Gastrointestinal: denies: abdomen distended, abdominal pain, blood streaked bowels, constipated, diarrhea, dysphagia, difficulty swallowing, hematemesis, melena, nausea, poor appetite, poor fluid intake, rectal bleeding, rectal pain, vomiting, others Genitourinary: reports: flank pain (left-side); denies: abnormal vagina bleeding, burning, dyspareunia, dysuria, frequency, hematuria, incontinence, pain, , vagina discharge, urgency, others Neurological: denies: dizziness, fainting, headache, left sided numbness, left sided weakness, numbness, paresthesia, pre-existing deficit, right sided numbness, right sided weakness, seizure, speech problems, tingling, tremors, weakness, others Musculoskeletal: denies: back pain, gout, joint pain, joint swelling, muscle pain, muscle stiffness, neck pain, others Integumetry: denies: bruises, change in color, change in hair/nails, dryness, laceration, lesions, lumps, rash, wounds, others Allergic/Immunocompromised: denies: Difficulty Healing, Frequent Infections, Hives, Itching, others Hematologic/Lymphatic: denies: anemia, blood clots, easy bleeding, easy bruising, swollen glands, others Endocrine: denies: excessive hunger, excessive sweating, excessive thirst, excessive urination, flushing, intolerance to cold, intolerance to heat, unexplained weight gain, unexplained weight loss, others Psychiatric: denies: anxiety, bipolar disorder, depression, hopeless, panic disorder, schizophrenia, sleepless, suicidal, others All Other Systems: Reviewed and Negative Physical Exam General Appearance: Moderate Distress HEENT: Normal ENT Inspection, Pharynx Normal, TMs Normal Neck: Full Range of Motion, Non-Tender, Normal, Normal Inspection Respiratory: Chest Non-Tender, Lungs Clear, No Accessory Muscle Use, No Respiratory Distress, Normal Breath Sounds Cardiovascular: No Edema, No JVD, No Murmur, No Gallop, Normal Peripheral Pulses, Regular Rate/Rhythm Breast Exam: Deferred Gastrointestinal: No Organomegaly, No Pulsatile Mass, Normal Bowel Sounds, RUQ, Soft, Tenderness, Other (Tenderness to the right flank region) Genitalia: Deferred Pelvic: Deferred Rectal: Deferred Extremities: No calf tenderness, Normal capillary refill, Normal inspection, Normal range of motion, Non-tender, No pedal edema Musculoskeletal : Apperance: Normal Neurologic: Alert, resident associate II-XII nml as Tested, No Motor Deficits, Normal Affect, Normal Mood, No Sensory Deficits Cerebellar Function: Normal Reflexes: Normal Skin: Dry, Normal Color, Warm Lymphatic: No Adenopathy Was a procedure done? Was a procedure done?: No Differential Dx Considerations may include: nephrolithiasis, pyelonephritis, musculoskeletal pain, ovarian cysts, ovarian torsion, cystitis, diverticulitis X-Ray, Labs, Meds, VS Vital Signs Date Time Temp Pulse Resp B/P (MAP) Pulse Ox O2 Delivery O2 Flow Rate FiO2 07/11/24 15:47 107 20 127/88 07/11/24 14:57 112 22 128/88 (101) 96 07/11/24 14:57 112 22 96 Room Air 07/11/24 13:30 112 22 128/88 07/11/24 12:20 97.3 112 20 114/104 (107) 94 Lab Test 07/11/24 13:46 Range/Units White Blood Count 14.0 H 4.4-10.8 10^3/uL Red Blood Count 4.41 4.0-5.20 10^6/uL Hemoglobin 14.1 12.2-16.2 g/dL Hematocrit 43.4 36.0-46.0 % Mean Corpuscular Volume 98.6 80.0-100.0 fL Mean Corpuscular Hemoglobin 32.0 28.0-32.0 pg Mean Corpuscular Hemoglobin Concent 32.5 32.0-36.0 g/dL Red Cell Distribution Width 15.0 H 11.8-14.3 % Platelet Count 318 140-450 10^3/uL Mean Platelet Volume 8.9 6.9-10.8 fL Neutrophils (%) (Auto) 84.5 H 37.0-80.0 % Lymphocytes (%) (Auto) 9.6 L 10.0-50.0 % Monocytes (%) (Auto) 4.7 0.0-12.0 % Eosinophils (%) (Auto) 0.8 0.0-7.0 % Basophils (%) (Auto) 0.4 0.0-2.0 % Neutrophils # (Auto) 11.8 H 1.6-8.6 10 ^3/uL Lymphocytes # (Auto) 1.3 0.4-5.4 10 ^3/uL Monocytes # (Auto) 0.7 0-1.3 10 ^3/uL Eosinophils # (Auto) 0.1 0-0.8 10 ^3/uL Basophils # (Auto) 0.1 0-0.2 10 ^3/uL Nucleated Red Blood Cells 0.0 % Sodium Level 141 136-145 mmol/L Potassium Level 4.1 3.5-5.1 mmol/L Chloride Level 104 98-107 mmol/L Carbon Dioxide Level 29 20-31 mmol/L Anion Gap 8 5-15 Blood Urea Nitrogen 23 9-23 mg/dL Creatinine 1.47 H 0.550-1.02 mg/dL Glomerular Filtration Rate Calc 41 >90 mL/min BUN/Creatinine Ratio 15.6 10.0-20.0 Serum Glucose 134 H 74-106 mg/dL Calcium Level 10.7 H 8.7-10.4 mg/dL Total Bilirubin 0.8 0.2-1.0 mg/dL Aspartate Amino Transferase (AST) 16 13-40 U/L Alanine Aminotransferase (ALT) 24 7-40 U/L Alkaline Phosphatase 124 H 46-116 U/L Total Protein 7.5 5.7-8.2 g/dL Albumin 4.5 3.2-4.8 g/dL Current Medications Medications (Trade) Dose Ordered Sig/Filippo Route Start Time Stop Time Status Last Admin Ondansetron HCl (Zofran) 4 mg ONCE ONCE IV 07/11/24 13:30 07/11/24 13:31 DC 07/11/24 13:30 Morphine Sulfate 4 mg ONCE ONCE IV 07/11/24 13:30 07/11/24 13:31 DC 07/11/24 13:30 Ketorolac Tromethamine (Toradol Injection) 30 mg ONCE ONCE IV 07/11/24 13:30 07/11/24 13:31 DC 07/11/24 13:30 PROCEDURE(s): ABPL - CT AB PEL WO CON-NO ORAL OR IV IMPRESSION: 1. There is mild left renal hydronephrosis with fat stranding surrounding a left extrarenal pelvis. There is no evidence of nephrolithiasis or obstructing ureteral calculus. Findings May relate to recent passage of kidney stone. Clinical correlation is recommended. 2. Diffuse hepatic steatosis. 3. Cholelithiasis. 4. Postsurgical changes in the retroperitoneum and pelvis likely related to prior lymph node dissection. Clinical correlation is recommended. 5. Distal colon diverticulosis. IV Hep-Lock was established The patient was given Zofran 4 mg IV push for the nausea. The patient was given morphine 4 mg IV push for the pain The patient was given ketorolac 30 mg IV push At this time, the patient will be admitted to the hospitalist. The patient's [place] [id number] The patient was being admitted at this time. Images Reviewed?: Images reviewed and evaluated by me Time of 1ST Reevaluation: 13:30 Reevaluation 1ST: Unchanged Patient Education/Counseling: Diagnosis, Treatment, Prognosis Family Education/Counseling: No Family Present Departure 1 Departure Time of Disposition: 16:51 Impression: Primary Impression: Intractable abdominal pain Additional Impressions: Cholelithiasis Qualified Codes: K80.20 - Calculus of gallbladder without cholecystitis without obstruction Right flank pain Kidney stones Disposition: ADMITTED INPATIENT Admit to: Med Surg Condition: Fair Critical Care Note Critical Care Time?: No Stability Stability form required: Yes Unstable for transfer: ED Physician Assesment (Clinical assesment) Heart Score Heart Score: Heart Score Response (Comments) Value History N/A 0 EKG N/A 0 Age N/A 0 Risk Factors N/A 0 Troponin N/A 0 Total 0 I personally scribed for MARIANNE SHERMAN MD ([email or web address]) on 07/11/24 at 13:30. Electronically submitted by Geronimo Peraza ([email or web address]). I personally scribed for MARIANNE SHERMAN MD ([email or web address]) on 07/11/24 at 14:10. Electronically submitted by Geronimo Peraza ([email or web address]). MARIANNE SHERMAN MD Jul 11, 2024 13:30
--- NOTE | 2024-07-11 13:56 | DVH ---
CT ABDOMEN AND PELVIS WITHOUT CONTRAST CLINICAL HISTORY: Left flank pain TECHNIQUE: Multiple contiguous axial images of the abdomen and pelvis without intravenous contrast. The images were reformatted degenerate coronal and sagittal reconstructions. All CT scans at this medical facility are performed using dose modulation techniques as appropriate t o a performed exam including the following:Automated exposure control was utilized; adjustment of the MA and/or KV according to patient size; and use of iterative reconstruction technique. Radiation Dose Information: CT Dose: CTDI volume is 27 mGy. Dose-length product is 16 90 mGy*cm Comparison: None FINDINGS: Evaluation of the abdomen and pelvis is limited without intravenous contrast. There is mild left renal hydronephrosis with fat stranding surrounding a left extrarenal pelvis. Ther e is no evidence of a radiopaque renal calculus. There is no evidence of a left ureteral calculus or hydroureter. There is no right renal nephrolithiasis or hydronephrosis. There is diffuse hepatic steatosis. There are gallstones in the gallbladder. The pancreas, kidne ys, adrenal glands, and spleen appear within normal limits. There are multiple surgical clips in the retroperitoneum along the abdominal aorta and inferior vena cava. There is no gross abdominal lymphadenopathy. There is no free fluid or free air. The stomach grossly appears unremarkable. The small and large bowel loops demonstrate normal caliber . There are diverticula in the distal colon without evidence of acute diverticulitis. The abdominal aorta and IVC appear within normal limits. The bladder appears unremarkable for the degree of distention. There is no evidence of a bladder calc ulus. The uterus is surgically absent. There are multiple surgical clips along the right and left pe lvic sidewall.. There is no gross evidence of a pelvic mass. There is no free fluid collection. Lung bases are clear. There is no acute osseous abnormality. IMPRESSION: 1. There is mild left renal hydronephrosis with fat stranding surrounding a left extrarenal pelvis. T here is no evidence of nephrolithiasis or obstructing ureteral calculus. Findings May relate to recen t passage of kidney stone. Clinical correlation is recommended. 2. Diffuse hepatic steatosis. 3. Cholelithiasis. 4. Postsurgical changes in the retroperitoneum and pelvis likely related to prior lymph node dissecti on. Clinical correlation is recommended. 5. Distal colon diverticulosis. HS:Y
[2024-07-11 14:09] LABS: Basophils # (auto) 0.1 10 ^3/uL (0-0.2); Basophils % (auto) 0.4 % (0.0-2.0); Eosinophils # (auto) 0.1 10 ^3/uL (0-0.8); Eosinophils % (auto) 0.8 % (0.0-7.0); Hematocrit 43.4 % (36.0-46.0); Hemoglobin 14.1 g/dL (12.2-16.2); Lymphocytes # (auto) 1.3 10 ^3/uL (0.4-5.4); Lymphocytes % (auto) 9.6 % (10.0-50.0); Mean Corpuscular Hgb Conc. 32.5 g/dL (32.0-36.0); Mean Corpuscular Volume 98.6 fL (80.0-100.0); Monocytes # (auto) 0.7 10 ^3/uL (0-1.3); Monocytes % (auto) 4.7 % (0.0-12.0); Neutrophils # (auto) 11.8 10 ^3/uL (1.6-8.6); Neutrophils % (auto) 84.5 % (37.0-80.0); Platelet Count (auto) 318 10^3/uL (140-450); Red Blood Cells 4.41 10^6/uL (4.0-5.20)
[2024-07-11 14:25] LABS: Alanine Aminotransferase 24 U/L (7-40); Albumin 4.5 g/dL (3.2-4.8); Anion Gap 8 (5-15); Aspartate Aminotransferase 16 U/L (13-40); BUN/Creatinine Ratio 15.6 (10.0-20.0); Bilirubin, Total 0.8 mg/dL (0.2-1.0); Blood Urea Nitrogen 23 mg/dL (9-23); Carbon Dioxide 29 mmol/L (20-31); Chloride 104 mmol/L (98-107); Potassium 4.1 mmol/L (3.5-5.1); Sodium 141 mmol/L (136-145); Total Protein 7.5 g/dL (5.7-8.2)
[2024-07-11 14:26] LABS: Alkaline Phosphatase 124 U/L (46-116); Calcium 10.7 mg/dL (8.7-10.4); Glucose 134 mg/dL (74-106)
[2024-07-11 18:56] LABS: Urine Bacteria FEW /hpf (None Seen); Urine Blood 1+ /uL (Negative); Urine Clarity Ex.Turbid (Clear); Urine Color Light-Orange (Yellow); Urine Protein, UAD 1+ (Negative); Urine Specific Gravity 1.016 (1.001-1.035); Urine Urobilinogen Normal (Negative); Urine WBC 2657 /hpf (0 - 5); Urine WBC Clumps PRESENT /hpf (None Seen)
[2024-07-11 22:26] LABS: Basophils # (auto) 0.1 10 ^3/uL (0-0.2); Basophils % (auto) 0.4 % (0.0-2.0); Eosinophils # (auto) 0.1 10 ^3/uL (0-0.8); Eosinophils % (auto) 0.9 % (0.0-7.0); Hematocrit 47.8 % (36.0-46.0); Hemoglobin 15.5 g/dL (12.2-16.2); Lymphocytes # (auto) 1.8 10 ^3/uL (0.4-5.4); Lymphocytes % (auto) 11.8 % (10.0-50.0); Mean Corpuscular Hemoglobin 32.5 pg (28.0-32.0); Mean Corpuscular Hgb Conc. 32.6 g/dL (32.0-36.0); Monocytes % (auto) 6.4 % (0.0-12.0); Neutrophils # (auto) 12.1 10 ^3/uL (1.6-8.6); Neutrophils % (auto) 80.5 % (37.0-80.0); Nucleated Red Blood Cells % 0.3 %; Platelet Count (auto) 270 10^3/uL (140-450); Red Blood Cells 4.78 10^6/uL (4.0-5.20); Red Cell Distribution Width 15.4 % (11.8-14.3)
[2024-07-11 22:43] LABS: Alanine Aminotransferase 37 U/L (7-40); Albumin 4.5 g/dL (3.2-4.8); Anion Gap 10 (5-15); Bilirubin, Total 1.2 mg/dL (0.2-1.0); Blood Urea Nitrogen 20 mg/dL (9-23); Calcium 10.3 mg/dL (8.7-10.4); Carbon Dioxide 20 mmol/L (20-31); Chloride 103 mmol/L (98-107); Potassium 4.4 mmol/L (3.5-5.1); Total Protein 7.7 g/dL (5.7-8.2)
[2024-07-11 22:44] LABS: Alkaline Phosphatase 142 U/L (46-116); Aspartate Aminotransferase 43 U/L (13-40); Glucose 137 mg/dL (74-106); Sodium 133 mmol/L (136-145)
[2024-07-11] MEDS: SODIUM CHLORIDE 0.9% 1,000 ML IV ONE (23:26)
[2024-07-11] MEDS: cefTRIAXone 1GM/50ML D5W 50 ML IV ONE (23:27)
[2024-07-11] MEDS ORDERED: MORPHINE SULFATE INJ 2 MG/ml SYRG IV PRN (23:45)
[2024-07-12 00:05] LABS: Creatinine, Urine 169.18 mg/dL (30.0-125.0)
[2024-07-12 00:15] LABS: Protein, Urine 43.9 mg/dL (1-14); Urine Protein/Creatinine Ratio 0.26
--- NOTE | 2024-07-12 00:24 | DVH ---
ABDOMINAL ULTRASOUND CLINICAL HISTORY: RUQ discomfort, cholelithiasis, acute cholecystitis TECHNIQUE: Multiple grayscale and color Doppler ultrasound images were obtained of the abdomen. WID: COMPARISON: CT abdomen and pelvis from today FINDINGS: Liver and Biliary System: Increased echogenicity, normal size measuring 16.5 cm. No focal hepatic observations. No intrahepatic bile duct dilatation. The common duct was not visualized. The gallblad aakash contains cholelithiasis. No gallbladder wall thickening or pericholecystic fluid. Sonographic justin's sign is negative. Pancreas: Not well-visualized due to overlying bowel gas. Kidneys: The right kidney is 9.1 cm No hydronephrosis, increased echogenicity, shadowing stone, or focal lesion. IMPRESSION: 1. Hepatic steatosis. 2. Cholelithiasis without acute cholecystitis or biliary ductal dilatation.
--- NOTE | 2024-07-12 01:03 | DVHHPRES ---
History of Present Illness Resident Creating Document: ZACKTERIGAY RESIDENT History of Present Illness Patient is a 59-year-old female with a past medical history as described below came to the ED with a chief complaint of left flank pain. Patient reports that she was apparently well about 4 days ago when he started having burning pain on urination, increased frequency and left flank pain which was radiating down to the groin. The pain was throbbing, colicky and severe in intensity. Patient also reports feeling feverish, nausea and vomiting before coming to the hospital but denied blood in urine, diarrhea. Patient was admitted about a month ago at [facility] and was treated for UTI. Patient also reports intermittent right upper quadrant discomfort, reports history of cholelithiasis. Patient denied chest pain, palpitations, shortness of breath. 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 Home medications: Allopurinol 300 mg once daily, colchicine 0.6 mg once every other day, rabeprazole 20 mg q.d., enalapril 20 mg q.d., furosemide 40 mg b.i.d. PCP: Dr. Uziel Leon Review of Systems Review of Systems Patient seen and examined at bedside Reports mild left flank discomfort, earlier on admission she had severe flank pain was relieved with morphine Has burning pain on urination, increased frequency Denies current nausea, vomiting, diarrhea, headache, chest pain, shortness of breath, palpitations Allergies: Coded Allergies: Aspirin (Verified Allergy, Unknown, 02/12/15) Bacitracin (Verified Allergy, Unknown, 02/12/15) Iodine (Verified Allergy, Unknown, 02/12/15) Neomycin (Verified Allergy, Unknown, 02/12/15) Polymyxin B (Verified Allergy, Unknown, 02/12/15) Medications Current Medications Medications Dose Ordered Sig/Filippo Route Start Time Stop Time Status Last Admin Dose Admin Ceftriaxone Sodium 50 ml @ 100 mls/hr DAILY@09 IV 07/12/24 09:00 Acetaminophen/ Hydrocodone Bitart 1 tab Q6HPRN PRN PO 07/11/24 23:45 Morphine Sulfate 2 mg Q6HPRN PRN IV 07/11/24 23:45 Ondansetron HCl 4 mg Q6HPRN PRN IV 07/11/24 23:45 Exam Vital Signs Vital Signs Date Time Temp Pulse Resp B/P (MAP) Pulse Ox O2 Delivery O2 Flow Rate FiO2 07/11/24 15:47 107 20 127/88 07/11/24 14:57 96 07/11/24 14:57 Room Air 07/11/24 12:20 97.3 Exam Physical Examination Constitution: Patient is alert and oriented to time, place and person and appears to be in no acute distress Gen - no pallor, no icterus, no cyanosis, no clubbing, no LAD, no edema . Skin - Patients skin is warm and dry. HEENT - normocephalic, atraumatic, dry mucous membranes. Neck - full ROM, no LAD, no JVD Pulmonary - B/L vesicular breath sounds. no crackles , no wheezing, no stridor. cardiovascular - normal S1,S2 heard. no murmurs heard. peripheral pulses radial 2+, pedal 2+. capillary refill normal <2 secs. GI - soft abdomen with with mild tenderness to palpation in the left flank . no hepatospleenomegaly. Bowel sounds normoactive, no CVA tenderness Neurological - Bilateral upper extremity strength 5/5, bilateral lower extremity strength 5/5, no facial droop, normal speech, no tremor, no sensory deficiets. Extremities: Left lower extremity has chronic lymphedema, right lower extremity normal no edema Labs/Xrays Labs Test 07/11/24 22:16 07/11/24 17:41 07/11/24 13:46 Range/Units White Blood Count 15.0 H 4.4-10.8 10^3/uL Red Blood Count 4.78 4.0-5.20 10^6/uL Hemoglobin 15.5 12.2-16.2 g/dL Hematocrit 47.8 #H 36.0-46.0 % Mean Corpuscular Volume 100.0 80.0-100.0 fL Mean Corpuscular Hemoglobin 32.5 H 28.0-32.0 pg Mean Corpuscular Hemoglobin Concent 32.6 32.0-36.0 g/dL Red Cell Distribution Width 15.4 H 11.8-14.3 % Platelet Count 270 140-450 10^3/uL Mean Platelet Volume 8.7 6.9-10.8 fL Neutrophils (%) (Auto) 80.5 H 37.0-80.0 % Lymphocytes (%) (Auto) 11.8 10.0-50.0 % Monocytes (%) (Auto) 6.4 0.0-12.0 % Eosinophils (%) (Auto) 0.9 0.0-7.0 % Basophils (%) (Auto) 0.4 0.0-2.0 % Neutrophils # (Auto) 12.1 H 1.6-8.6 10 ^3/uL Lymphocytes # (Auto) 1.8 0.4-5.4 10 ^3/uL Monocytes # (Auto) 1.0 0-1.3 10 ^3/uL Eosinophils # (Auto) 0.1 0-0.8 10 ^3/uL Basophils # (Auto) 0.1 0-0.2 10 ^3/uL Nucleated Red Blood Cells 0.3 % Sodium Level 133 #L 136-145 mmol/L Potassium Level 4.4 3.5-5.1 mmol/L Chloride Level 103 98-107 mmol/L Carbon Dioxide Level 20 20-31 mmol/L Anion Gap 10 5-15 Blood Urea Nitrogen 20 9-23 mg/dL Creatinine 2.22 #H 0.550-1.02 mg/dL Glomerular Filtration Rate Calc 25 >90 mL/min BUN/Creatinine Ratio 9.0 L 10.0-20.0 Serum Glucose 137 H 74-106 mg/dL Calcium Level 10.3 8.7-10.4 mg/dL Total Bilirubin 1.2 H 0.2-1.0 mg/dL Aspartate Amino Transferase (AST) 43 H 13-40 U/L Alanine Aminotransferase (ALT) 37 7-40 U/L Alkaline Phosphatase 142 H 46-116 U/L Total Protein 7.7 5.7-8.2 g/dL Albumin 4.5 3.2-4.8 g/dL Urine Color Light-orange Yellow Urine Clarity Ex.turbid Clear Urine pH 6.0 5.0-9.0 Urine Specific [place] 1.016 1.001-1.035 Urine Protein 1+ H Negative Urine Ketones Negative Negative Urine Blood 1+ H Negative /uL Urine Nitrite 2+ H Negative Urine Bilirubin Negative Negative Urine Urobilinogen Normal Negative mg/dL Urine Leukocyte Esterase 3+ Negative /uL Urine RBC 7 0 - 4 /hpf Urine WBC 2657 0 - 5 /hpf Urine WBC Clumps Present None Seen /hpf Urine Squamous Epithelial Cells None seen <5 /hpf Urine Bacteria Few H None Seen /hpf Urine Creatinine 169.18 H 30.0-125.0 mg/dL Urine Protein/Creatinine Ratio 0.26 Urine Sodium 29 L 40-220 mmol/L Urine Glucose Normal Normal mg/dL Urine Total Protein 43.9 H 1-14 mg/dL Urine Test Negative Negative Beta HCG, Quantitative 4.2 1.5-4.2 mIU/mL Assessment/Plan Assessment/Plan Assessment # Sepsis likely due to UTI # ?Acute pyelonephritis ( tachycardic, tachypneic, elevated white blood cell count, urinalysis shows 2+ nitrate, 3+ LE, [id number], few bacteria) ( CT abdomen pelvis without contrast shows 1.mild left renal hydronephrosis with fat stranding surrounding a left extrarenal pelvis. There is no evidence of nephrolithiasis or obstructing ureteral calculus. 2. Diffuse hepatic steatosis. 3. Cholelithiasis. 4. Postsurgical changes in the retroperitoneum and pelvis likely related to prio r lymph node dissection. Clinical correlation is recommended. 5. Distal colon diverticulosis ) # Asaf on CKD stage IIIB likely prerenal hemodynamically mediated VMN ( serum creatinine increasing 1.47-> 2.22, GFR 25, FENa 0.2%) # right upper quadrant discomfort, cholelithiasis, r/o acute cholecystitis Right upper quadrant ultrasound was 1. Hepatic steatosis. 2. Cholelithiasis without acute cholecystitis or biliary ductal dilatation. Plan - patient given 500 mL NS bolus - on NS at 200 mL/hour - IV ceftriaxone 1 g daily - urine bacteria culture pending - blood culture pending - enalapril, furosemide held - morphine p.r.n. for pain control and Zofran p.r.n. for nausea - nephrology consulted Goals of care discussed with the patient for over 27 minutes. Full code Plan discussed with Dr. Hedrick Plan discussed with: Patient My Orders Orders - TRACI DIXON RESIDENT Procedure Category Date Status Time Admit ADMIT 07/11/24 Transmitted 21:45 Emergency Dysrhythmia YOANNA 12/26/24 In Process Protocol 21:45 Urine Bacterial RAFAELA 07/11/24 In Process Culture 21:45 Sodium Chloride 0.9% PHA 07/11/24 In Process 21:45 Covid19 Antigen Rasheeda LAB 07/11/24 Logged Rapid Influenza A&B LAB 07/11/24 Logged 21:45 Ceftriaxone 1gm/50ml PHA 07/12/24 In Process D5w (Rocephin) 09:00 Gallbladder US 07/11/24 Resulted 22:26 Code Status CODE 07/11/24 Transmitted 23:32 Hydrocodone-Acet PHA 07/11/24 In Process 5/325mg Tab (Cadet 23:45 Morphine Sulfate PHA 07/11/24 In Process Injection 23:45 Ondansetron Hcl PHA 07/11/24 In Process (Zofran) 23:45 Echo 2d Mode Cardiac US 07/11/24 Logged DOP 23:33 Comprehensive LAB 07/12/24 Logged Metabolic Panel 04:00 Complete Blood Count LAB 07/12/24 Logged 04:00 Regular Diet DIET 07/12/24 Transmitted Breakfast Date of Service: Jul 11, 2024 Billing Provider: AZAEL HEDRICK MD Common Visit Codes: [id number] INP/OBS CARE (HIGH) TRACI DIXON RESIDENT Jul 12, 2024 01:03 AZAEL HEDRIKC MD Jul 12, 2024 08:50
[2024-07-12 05:14] LABS: Basophils # (auto) 0 10 ^3/uL (0-0.2); Basophils % (auto) 0.2 % (0.0-2.0); Eosinophils # (auto) 0.1 10 ^3/uL (0-0.8); Hematocrit 41.9 % (36.0-46.0); Hemoglobin 13.7 g/dL (12.2-16.2); Lymphocytes # (auto) 1.1 10 ^3/uL (0.4-5.4); Lymphocytes % (auto) 8.5 % (10.0-50.0); Mean Corpuscular Hemoglobin 32.2 pg (28.0-32.0); Mean Corpuscular Hgb Conc. 32.6 g/dL (32.0-36.0); Mean Corpuscular Volume 98.7 fL (80.0-100.0); Monocytes # (auto) 0.9 10 ^3/uL (0-1.3); Monocytes % (auto) 6.7 % (0.0-12.0); Neutrophils # (auto) 11.1 10 ^3/uL (1.6-8.6); Neutrophils % (auto) 83.6 % (37.0-80.0); Platelet Count (auto) 292 10^3/uL (140-450); Red Blood Cells 4.25 10^6/uL (4.0-5.20); White Blood Cell 13.3 10^3/uL (4.4-10.8)
[2024-07-12 05:25] LABS: Albumin 4.3 g/dL (3.2-4.8); Anion Gap 7 (5-15); BUN/Creatinine Ratio 11.4 (10.0-20.0); Calcium 9.8 mg/dL (8.7-10.4); Carbon Dioxide 28 mmol/L (20-31); Chloride 102 mmol/L (98-107); Potassium 4.2 mmol/L (3.5-5.1); Sodium 137 mmol/L (136-145); Total Protein 7.1 g/dL (5.7-8.2)
[2024-07-12 05:33] LABS: Alanine Aminotransferase 41 U/L (7-40); Alkaline Phosphatase 134 U/L (46-116); Aspartate Aminotransferase 40 U/L (13-40); Bilirubin, Total 1.3 mg/dL (0.2-1.0); Blood Urea Nitrogen 31 mg/dL (9-23); Glucose 124 mg/dL (74-106)
[2024-07-12] MEDS: SODIUM CHLORIDE 0.9% 500 ML IV ONE (07:16)
[2024-07-12 07:59] VITALS: BP 114/75; PULSE 104; RESP 19; TEMP 100.2; O2SAT 91
[2024-07-12 08:38] LABS: COVID19 ANTIGEN SOFIA FIA NEGATIVE (NEGATIVE)
[2024-07-12] MEDS: ACETAMINOPHEN 500 MG TAB or CAP PO ONE ×2 (08:38→08:41)
[2024-07-12 08:42] LABS: Rapid Influenza A Negative (Negative); Rapid Influenza B Negative (Negative)
[2024-07-12] MEDS ORDERED: cefTRIAXone 1GM/50ML D5W 50 ML IV SCH (09:00)
[2024-07-12 09:31] VITALS: BP 102/68; PULSE 90; RESP 18; TEMP 98.2; O2SAT 94
[2024-07-12 10:30] VITALS: O2SAT 98
[2024-07-12] MEDS ORDERED: ENAL1TAB48 PO (10:50)
[2024-07-12] MEDS ORDERED: COLC1CAP (10:50)
[2024-07-12] MEDS ORDERED: ALLO300T2 PO (10:50)
[2024-07-12] MEDS ORDERED: FURO40TA4 PO (10:50)
[2024-07-12] MEDS: ceFAZolin 1GM/50ML 50 ML IV ONE (10:51)
[2024-07-12] MEDS: MAGNESIUM SULFATE 1GM/100ML 100 ML IV ONE (10:52)
[2024-07-12] MEDS: ALLOPURINOL 100 MG TAB PO SCH (11:00)
[2024-07-12 13:00] VITALS: BP 112/70; PULSE 83; RESP 18; TEMP 98; O2SAT 95
--- NOTE | 2024-07-12 13:59 | DVHSR ---
APPROVED REPORT EXAM: LIMITED Two-dimensional and M-mode echocardiogram with Doppler and color Doppler. Blood Pressure: 122/63 mmHg INDICATION SOB RISK FACTORS Obesity: Height: 5' 2", Weight: 246 DIMENSIONS LVDd4.2 (3.8-5.7cm)LA (2D)3.1 (1.9-4.0cm)Aortic Root3.5 (2.0-3.7cm) LVDs3.2 (2.5-4.0cm)LA (MM) (1.9-4.0cm)Aortic Cusp Exc1.8 (1.5-2.0cm) EF (%) 50.0 (55-70%)Rt. Atrium3.0 (1.9-4.0cm)Asc. Aorta cm IVSd1.0 (0.7-1.1cm)RV (D) (1.8-2.4cm) PWd1.1 (0.7-1.1cm) Mitral Valve MitralMitral Stenosis E wave0.70m/sMV Mean GR.mmHg A wave1.10m/sMV Peak GR.mmHg E/A ratio0.62D MVAcm2 Aortic Valve Aortic ValveAortic Stenosis V11.50m/Cintia Mean GR.7mmHg V21.70m/Cintia Peak GR.12mmHg LVOT Diameter2.0 (1.8-2.4cm)Doppler AVA2.77cm2 Pulmonic Valve V21.20m/s LEFT VENTRICLE Normal left ventricular size and systolic function. Ejection fraction is estimated at 60-65%. There is no gross wall motion abnormalities but the study overall is technically difficult. Diastolic fun ction appears to be preserved. The E to E prime ratio is in the indeterminate range. The left ventr icular wall thickness is normal. RIGHT VENTRICLE Likely of normal size and systolic function. ATRIA Both atria appear to be of normal size. MITRAL VALVE The mitral valve was normal structure and function. No significant mitral regurgitation. PULMONIC VALVE Not well visualized. TRICUSPID VALVE Not well visualized. Likely of normal left function. There is no significant tricuspid regurgitatio n. PA pressure could not be estimated. AORTIC VALVE Not well visualized. The leaflets are probably sclerotic. No hemodynamically significant stenosis o r regurgitation. GREAT VESSELS Normal. PERICARDIAL EFFUSION No significant effusion. Other Information Quality : Technically LimitedRhythm : Technically limited study due to body habitus. Conclusion The study is technically difficult because of the patient's body habitus. Normal left ventricular size and systolic function. No gross wall motion abnormalities identified. Diastolic function appears to be preserved. Likely normal right ventricular size and systolic function. No hemodynamically significant valvular disease. PA systolic pressure could not be estimated. No pericardial effusion.
[2024-07-12 17:00] VITALS: BP 117/70; PULSE 82; RESP 18; TEMP 98.1; O2SAT 95
--- NOTE | 2024-07-12 18:31 | DVHPNRES ---
Progress Note Date Seen: Jul 12, 2024 Resident Creating Document: GUERLINE SCHMITZ RESIDENT Medical Necessity Reason Pt with a Central, PICC or Fol: No Subjective Review of Systems Patient is 59 years old female with past medical history of diabetes mellitus type 2, CKD stage, history of cervical carcinoma, status post hysterectomy, lymphedema of left leg, cholelithiasis, TIA, DVT of the left lower extremity 10 years before came with a complaint of left flank pain. Patient reported that she has been having left flank pain for last 4 days, sharp in nature, 10/10 in severity radiating to the left lower abdomen, no aggravating factor. Patient also endorsed dysuria, urgency and increased frequency. On further inquiry patient also reported had fever at home up to 100.8 F, had nausea and vomiting couple of times watery content, no blood. Initial lab workup revealed leukocytosis with WBC 14.0, serum creatinine 1.47> 2.73, serum bilirubin 1.3, AST 40, ALT 41, alkaline phosphatase 124 urinalysis revealed UTI with nitrite 2+, leukocyte esterase 3+, WBC 2657, RBC 7, bacteria few, uterine sodium 29, urine creatinine 169.18, urine total protein 3.9, protein creatinine ratio 0.26. Tested negative for COVID-19 and influenza type A and B. CT abdomen revealed- There is mild left renal hydronephrosis with fat stranding surrounding a left extrarenal pelvis. There is no evidence of nephrolithiasis or obstructing ureteral calculus. Findings May relate to recent passage of kidney stone. Clinical correlation is recommended. Diffuse hepatic steatosis. Cholelithiasis. Postsurgical changes in the retroperitoneum and pelvis likely related to prior lymph node dissection. Clinical correlation is recommended. Distal colon diverticulosis. Limited ultrasound revealed- Hepatic steatosis. Cholelithiasis without acute cholecystitis or biliary ductal dilatation. 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 Home medications: Allopurinol 300 mg once daily, colchicine 0.6 mg once every other day, rabeprazole 20 mg q.d., enalapril 20 mg q.d., furosemide 40 mg b.i.d. Patient was seen today at the bedside. Cardiovascular- deny acute chest pain or shortness of breath or cough or palpitation Respiratory- denies cough or short of breath or wheezing Gastrointestinal- denies any rectal bleeding, Musculoskeletal-denies acute joint swelling or tenderness or redness Neurological- denies acute dysarthria, dysphagia, change in vision Psychiatry- denies depression or SI or HI Skin- denies acute rash or purpura Objective vital signs Vital Sign Date Time Temp Pulse Resp B/P (MAP) Pulse Ox O2 Delivery O2 Flow Rate FiO2 07/12/24 17:00 98.1 82 18 117/70 (86) 95 98.1 07/12/24 10:30 Room Air* 0 21 medications Current Medications Medications Dose Ordered Sig/Filippo Route Start Time Stop Time Status Last Admin Dose Admin Acetaminophen/ Hydrocodone Bitart 1 tab Q6HPRN PRN PO 07/11/24 23:45 Morphine Sulfate 2 mg Q6HPRN PRN IV 07/11/24 23:45 Ondansetron HCl 4 mg Q6HPRN PRN IV 07/11/24 23:45 Allopurinol 300 mg DAILY PO 07/12/24 10:00 07/12/24 11:00 300 MG Ceftriaxone Sodium/Dextrose 50 ml @ 50 mls/hr DAILY IV 07/13/24 10:00 Examination General examination- awake, alert, oriented, conversant HEENT- PEERLA, no acute nasal discharge Cardiovascular- S1-S2 audible, rate and rhythm regular, no murmur Respiratory- CTAB, no wheeze or rhonchi Gastrointestinal-nontender, bowel sound+. Nondistended Musculoskeletal-no acute joint swelling or tenderness or redness Renal system-left flank tenderness+, left mid abdominal tenderness Lower extremity- no leg edema Neurological- cranial nerves intact, no acute dysarthria or dysphagia Psychiatry- denies depression or SI or HI Skin- no acute rash or purpura laboratory and microbiology Laboratory Tests 07/12/24 04:50 Test 07/12/24 04:50 Range/Units Serum Glucose 124 H 74-106 mg/dL Microbiology Date/Time Source Procedure Growth Status 07/11/24 17:41 Urine - Midstream Clean Catch Urine Culture - Preliminary Resulted Problem List/Assessment/Plan Problem List/Assessment/Plan # sepsis likely due to pyelonephritis # pyelonephritis # MARY JANE on CKD stage IIIB # leukocytosis likely due to sepsis # transaminitis # hypomagnesemia # diabetes mellitus type 2 # DVT of the left lower extremity # TIA # history of cervical carcinoma, status post hysterectomy #mild left renal hydronephrosis # Cholelithiasis #Distal colon diverticulosis. #Hepatic steatosis. Pending blood culture and uterine culture Pending Urology and Nephrology consult -CT abdomen revealed- There is mild left renal hydronephrosis with fat stranding surrounding a left extrarenal pelvis. There is no evidence of nephrolithiasis or obstructing ureteral calculus. Findings May relate to recent passage of kidney stone. Clinical correlation is recommended. Diffuse hepatic steatosis. Cholelithiasis. Postsurgical changes in the retroperitoneum and pelvis likely related to prior lymph node dissection. . Distal colon diverticulosis. - Limited ultrasound revealed- Hepatic steatosis. Cholelithiasis without acute cholecystitis or biliary ductal dilatation. Continue ceftriaxone 2 g IV daily Continue normal saline 100 mL per hour daily Continue pain medication as prescribed Continue other management as prescribed Goals of care/advance care planning; FULL CODE; discussed with the patient >15 minutes PUD prophylaxis: Famotidine DVT prophylaxis: Lovenox Plan discussed with Dr. Hedrick, nursing staff, patient Total time spent on patient evaluation, chart review, assessment and plan, discussion discussion >30 minutes Plan discussed with: Patient Plan discussed with: Patient (RN), Other My Orders My Orders Orders - GUERLINE SCHMITZ Procedure Category Date Status Time Ceftriaxone 2gm/50ml PHA 07/13/24 In Process D5w (Rocephin 2gm/5 10:00 * Urology Consult CONS 07/12/24 Transmitted 16:10 Date of Service: Jul 12, 2024 Billing Provider: AZAEL HEDRICK MD Common Visit Codes: [id number] INP/OBS CARE(HIGH) GUERLINE SCHMITZ Jul 12, 2024 18:31 AZAEL HEDRICK MD Jul 13, 2024 10:29
[2024-07-12] MEDS: ENOXAPARIN SOD 40 MG/0.4 ML SYRINGE SC ONE (18:57)
[2024-07-12] MEDS: FAMOTIDINE (10MG/ML) 2ML VL IV ONE (18:57)
--- NOTE | 2024-07-12 20:19 | DVHINCON2 ---
Date of service: Jul 12, 2024 Referring Physician Rell Evans MD Reason for Consultation acute kidney injury History of Present Illness Mrs. Sutton is a 59-year-old female with known history of mild kidney insufficiency. Her primary care physician is Dr. Uziel Leon who [place] is out of the [place]. She reports severe dysuria and subjective fever prior to admission. Serum creatinine was noted to be elevated to the low 2 range and that is the reason for this consultation. She denies use of NSAIDs recently, denies gross hematuria denies hemoptysis or hematochezia. Past Medical History hypertension Diabetes Hyperuricemia History of cervical cancer Allergies: Coded Allergies: Aspirin (Verified Allergy, Unknown, 02/12/15) Bacitracin (Verified Allergy, Unknown, 02/12/15) Iodine (Verified Allergy, Unknown, 02/12/15) Neomycin (Verified Allergy, Unknown, 02/12/15) Polymyxin B (Verified Allergy, Unknown, 02/12/15) Home Meds Reported Medications Furosemide (Furosemide) 40 Mg Tab, 1 TAB PO BID 07/12/24 Enalapril Maleate (Enalapril Maleate) 20 Mg Tab, 1 TAB PO DAILY 07/12/24 Colchicine (Colchicine) 0.6 Mg Cap 07/12/24 Allopurinol (Allopurinol) 300 Mg Tab, 1 TAB PO DAILY 07/12/24 Rabeprazole Sodium (Aciphex) 20 Mg Tab, 20 MG PO DAILY 08/16/12 Current Medications Current Medications Medications (Trade) Dose Ordered Sig/Filippo Route PRN Reason Start Time Stop Time Status Last Admin Ceftriaxone Sodium 50 ml @ 100 mls/hr DAILY@09 IV 07/12/24 09:00 07/12/24 08:26 DC Acetaminophen/ Hydrocodone Bitart ([place] 5/325MG Tab) 1 tab Q6HPRN PRN PO MODERATE PAIN (4-6 PAIN SCALE) 07/11/24 23:45 Morphine Sulfate 2 mg Q6HPRN PRN IV SEVERE PAIN (7-10 PAIN SCALE) 07/11/24 23:45 Ondansetron HCl (Zofran) 4 mg Q6HPRN PRN IV NAUSEA / VOMITING 07/11/24 23:45 Allopurinol (Zyloprim Tablet) 300 mg DAILY PO 07/12/24 10:00 07/12/24 11:00 Ceftriaxone Sodium/Dextrose 50 ml @ 50 mls/hr DAILY IV 07/13/24 10:00 Enoxaparin Sodium (Lovenox) 40 mg DAILY SC 07/13/24 10:00 Famotidine (Pepcid Injection) 10 mg DAILY IV 07/12/24 22:00 Family History: Chronic obstructive pulmonary disease G8 MOTHER Diabetes mellitus GRANDMOTHER FH: Parkinson's disease GRANDMOTHER FH: colon cancer G8 FATHER Review of Systems aspirin history of present illness otherwise all systems are reviewed and are noncontributory. H&P Exam Vital Signs/I&O Vital Sign Date Time Temp Pulse Resp B/P (MAP) Pulse Ox O2 Delivery O2 Flow Rate FiO2 07/12/24 17:00 98.1 82 18 117/70 (86) 95 98.1 07/12/24 10:30 Room Air* 0 21 Physical Exam gen: nad heent: mmm lungs: cta cvs: no rub abd: soft ext: no edema skin: no rash neuro: awake and alert Labs/Diagnostic Data Labs/Diagnostic Data Laboratory Tests Test 07/12/24 07:36 07/12/24 04:50 07/11/24 22:16 07/11/24 17:41 Range/Units Influenza Type A Antigen Negative Negative Influenza Type B Antigen Negative Negative SARS-CoV-2 Antigen (Rapid) Negative NEGATIVE White Blood Count 13.3 H 15.0 H 4.4-10.8 10^3/uL Red Blood Count 4.25 4.78 4.0-5.20 10^6/uL Hemoglobin 13.7 15.5 12.2-16.2 g/dL Hematocrit 41.9 # 47.8 #H 36.0-46.0 % Mean Corpuscular Volume 98.7 100.0 80.0-100.0 fL Mean Corpuscular Hemoglobin 32.2 H 32.5 H 28.0-32.0 pg Mean Corpuscular Hemoglobin Concent 32.6 32.6 32.0-36.0 g/dL Red Cell Distribution Width 15.0 H 15.4 H 11.8-14.3 % Platelet Count 292 270 140-450 10^3/uL Mean Platelet Volume 8.9 8.7 6.9-10.8 fL Neutrophils (%) (Auto) 83.6 H 80.5 H 37.0-80.0 % Lymphocytes (%) (Auto) 8.5 L 11.8 10.0-50.0 % Monocytes (%) (Auto) 6.7 6.4 0.0-12.0 % Eosinophils (%) (Auto) 1.0 0.9 0.0-7.0 % Basophils (%) (Auto) 0.2 0.4 0.0-2.0 % Neutrophils # (Auto) 11.1 H 12.1 H 1.6-8.6 10 ^3/uL Lymphocytes # (Auto) 1.1 1.8 0.4-5.4 10 ^3/uL Monocytes # (Auto) 0.9 1.0 0-1.3 10 ^3/uL Eosinophils # (Auto) 0.1 0.1 0-0.8 10 ^3/uL Basophils # (Auto) 0 0.1 0-0.2 10 ^3/uL Nucleated Red Blood Cells 0.0 0.3 % Sodium Level 137 133 #L 136-145 mmol/L Potassium Level 4.2 4.4 3.5-5.1 mmol/L Chloride Level 102 103 98-107 mmol/L Carbon Dioxide Level 28 20 20-31 mmol/L Anion Gap 7 10 5-15 Blood Urea Nitrogen 31 #H 20 9-23 mg/dL Creatinine 2.73 H 2.22 #H 0.550-1.02 mg/dL Glomerular Filtration Rate Calc 19 25 >90 mL/min BUN/Creatinine Ratio 11.4 9.0 L 10.0-20.0 Serum Glucose 124 H 137 H 74-106 mg/dL Hemoglobin A1c 6.2 H <5.7 % A1C Calcium Level 9.8 10.3 8.7-10.4 mg/dL Magnesium Level 1.5 L 1.6-2.6 mg/dL Total Bilirubin 1.3 H 1.2 H 0.2-1.0 mg/dL Aspartate Amino Transferase (AST) 40 43 H 13-40 U/L Alanine Aminotransferase (ALT) 41 H 37 7-40 U/L Alkaline Phosphatase 134 H 142 H 46-116 U/L Total Protein 7.1 7.7 5.7-8.2 g/dL Albumin 4.3 4.5 3.2-4.8 g/dL Thyroid Stimulating Hormone (TSH) 1.25 0.55-4.78 uIU/mL Urine Color Light-orange Yellow Urine Clarity Ex.turbid Clear Urine pH 6.0 5.0-9.0 Urine Specific [place] 1.016 1.001-1.035 Urine Protein 1+ H Negative Urine Ketones Negative Negative Urine Blood 1+ H Negative /uL Urine Nitrite 2+ H Negative Urine Bilirubin Negative Negative Urine Urobilinogen Normal Negative mg/dL Urine Leukocyte Esterase 3+ Negative /uL Urine RBC 7 0 - 4 /hpf Urine WBC 2657 0 - 5 /hpf Urine WBC Clumps Present None Seen /hpf Urine Squamous Epithelial Cells None seen <5 /hpf Urine Bacteria Few H None Seen /hpf Urine Creatinine 169.18 H 30.0-125.0 mg/dL Urine Protein/Creatinine Ratio 0.26 Urine Sodium 29 L 40-220 mmol/L Urine Glucose Normal Normal mg/dL Urine Total Protein 43.9 H 1-14 mg/dL Urine Test Negative Negative Test 07/11/24 13:46 Range/Units White Blood Count 14.0 H 4.4-10.8 10^3/uL Red Blood Count 4.41 4.0-5.20 10^6/uL Hemoglobin 14.1 12.2-16.2 g/dL Hematocrit 43.4 36.0-46.0 % Mean Corpuscular Volume 98.6 80.0-100.0 fL Mean Corpuscular Hemoglobin 32.0 28.0-32.0 pg Mean Corpuscular Hemoglobin Concent 32.5 32.0-36.0 g/dL Red Cell Distribution Width 15.0 H 11.8-14.3 % Platelet Count 318 140-450 10^3/uL Mean Platelet Volume 8.9 6.9-10.8 fL Neutrophils (%) (Auto) 84.5 H 37.0-80.0 % Lymphocytes (%) (Auto) 9.6 L 10.0-50.0 % Monocytes (%) (Auto) 4.7 0.0-12.0 % Eosinophils (%) (Auto) 0.8 0.0-7.0 % Basophils (%) (Auto) 0.4 0.0-2.0 % Neutrophils # (Auto) 11.8 H 1.6-8.6 10 ^3/uL Lymphocytes # (Auto) 1.3 0.4-5.4 10 ^3/uL Monocytes # (Auto) 0.7 0-1.3 10 ^3/uL Eosinophils # (Auto) 0.1 0-0.8 10 ^3/uL Basophils # (Auto) 0.1 0-0.2 10 ^3/uL Nucleated Red Blood Cells 0.0 % Sodium Level 141 136-145 mmol/L Potassium Level 4.1 3.5-5.1 mmol/L Chloride Level 104 98-107 mmol/L Carbon Dioxide Level 29 20-31 mmol/L Anion Gap 8 5-15 Blood Urea Nitrogen 23 9-23 mg/dL Creatinine 1.47 H 0.550-1.02 mg/dL Glomerular Filtration Rate Calc 41 >90 mL/min BUN/Creatinine Ratio 15.6 10.0-20.0 Serum Glucose 134 H 74-106 mg/dL Calcium Level 10.7 H 8.7-10.4 mg/dL Total Bilirubin 0.8 0.2-1.0 mg/dL Aspartate Amino Transferase (AST) 16 13-40 U/L Alanine Aminotransferase (ALT) 24 7-40 U/L Alkaline Phosphatase 124 H 46-116 U/L Total Protein 7.5 5.7-8.2 g/dL Albumin 4.5 3.2-4.8 g/dL Beta HCG, Quantitative 4.2 1.5-4.2 mIU/mL Assessment IMP: 1) Hemodynamically mediated acute kidney injury, vasomotor nephropathy 2) possible cystitis/ urethritis 3) history of diabetes 4) CKD IIIa 5) HTN REC: - Trial of volume expansion - will check urine studies, serial chemistry panels - agree with holding CAR I - Patient to follow-up with Dr. Uziel Leon upon discharge. Discussed plan of care from nephrology perspective with Alicia. Plan discussed with: Patient BRUNA TOBAR MD Jul 12, 2024 20:19
[2024-07-12] MEDS: SODIUM CHLORIDE 0.9% 1,000 ML IV SCH (20:30)
[2024-07-12 21:00] VITALS: BP 106/62; PULSE 94; RESP 18; TEMP 99.2; O2SAT 92
[2024-07-12] MEDS: FAMOTIDINE (10MG/ML) 2ML VL IV SCH (21:08)
[2024-07-12] MEDS: HYDROcodone-ACET 5/325MG TAB PO PRN (21:09)
[2024-07-13 01:09] VITALS: BP 115/61; PULSE 101; RESP 18; TEMP 98.9; O2SAT 90
[2024-07-13 05:00] VITALS: BP 103/59; PULSE 93; RESP 18; TEMP 97.9; O2SAT 90
[2024-07-13 06:39] LABS: Basophils # (auto) 0.1 10 ^3/uL (0-0.2); Basophils % (auto) 0.7 % (0.0-2.0); Eosinophils # (auto) 0.2 10 ^3/uL (0-0.8); Eosinophils % (auto) 2.5 % (0.0-7.0); Hematocrit 36.7 % (36.0-46.0); Hemoglobin 12.3 g/dL (12.2-16.2); Lymphocytes # (auto) 1.4 10 ^3/uL (0.4-5.4); Lymphocytes % (auto) 15.1 % (10.0-50.0); Mean Corpuscular Hemoglobin 32.8 pg (28.0-32.0); Mean Corpuscular Hgb Conc. 33.6 g/dL (32.0-36.0); Mean Corpuscular Volume 97.7 fL (80.0-100.0); Monocytes # (auto) 0.6 10 ^3/uL (0-1.3); Monocytes % (auto) 6.8 % (0.0-12.0); Neutrophils # (auto) 7.1 10 ^3/uL (1.6-8.6); Neutrophils % (auto) 74.9 % (37.0-80.0); Nucleated Red Blood Cells % 0.1 %; Platelet Count (auto) 244 10^3/uL (140-450); Red Blood Cells 3.76 10^6/uL (4.0-5.20); Red Cell Distribution Width 14.7 % (11.8-14.3); White Blood Cell 9.5 10^3/uL (4.4-10.8)
[2024-07-13 06:45] LABS: Albumin 3.6 g/dL (3.2-4.8); Anion Gap 6 (5-15); Aspartate Aminotransferase 29 U/L (13-40); BUN/Creatinine Ratio 17.8 (10.0-20.0); Calcium 9.2 mg/dL (8.7-10.4); Carbon Dioxide 27 mmol/L (20-31); Chloride 105 mmol/L (98-107); Magnesium 1.8 mg/dL (1.6-2.6); Potassium 3.9 mmol/L (3.5-5.1); Sodium 138 mmol/L (136-145)
[2024-07-13 06:46] LABS: Bilirubin, Total 0.4 mg/dL (0.2-1.0); Total Protein 5.8 g/dL (5.7-8.2)
[2024-07-13 06:58] LABS: Alanine Aminotransferase 36 U/L (7-40)
[2024-07-13 09:00] VITALS: BP 110/65; PULSE 93; RESP 17; TEMP 98.1; O2SAT 90
[2024-07-13 09:00] LABS: Alkaline Phosphatase 132 U/L (46-116); Blood Urea Nitrogen 36 mg/dL (9-23); Glucose 126 mg/dL (74-106)
[2024-07-13] MEDS: cefTRIAXone 2GM/50ML D5W 50 ML IV SCH (09:35)
[2024-07-13] MEDS: ENOXAPARIN SOD 40 MG/0.4 ML SYRINGE SC SCH (09:36)
[2024-07-13] MEDS: ONDANSETRON HCL 4 MG/2 ML VIAL IV PRN (11:50)
[2024-07-13 12:36] VITALS: BP 110/74; PULSE 96; RESP 18; TEMP 97.9; O2SAT 92
[2024-07-13] MEDS: METOCLOPRAMIDE HCL 5MG/ml INJ 2ml VIAL IV ONE (13:13)
--- NOTE | 2024-07-13 16:20 | DVHINCON2 ---
Date of service: Jul 13, 2024 Referring Physician Amrit Reason for Consultation left hydronephrosis History of Present Illness admitted two days ago with left flank pain,UTI. multiple recurrent UTIs CKD 3b;no stone in past,no hematuria Past Medical History diabetic.reviewed Past Surgical History reviewed Family History: Chronic obstructive pulmonary disease G8 MOTHER Diabetes mellitus GRANDMOTHER FH: Parkinson's disease GRANDMOTHER FH: colon cancer G8 FATHER Allergies: Coded Allergies: Aspirin (Verified Allergy, Unknown, 02/12/15) Bacitracin (Verified Allergy, Unknown, 02/12/15) Iodine (Verified Allergy, Unknown, 02/12/15) Neomycin (Verified Allergy, Unknown, 02/12/15) Polymyxin B (Verified Allergy, Unknown, 02/12/15) Home Meds Reported Medications Furosemide (Furosemide) 40 Mg Tab, 1 TAB PO BID 07/12/24 Enalapril Maleate (Enalapril Maleate) 20 Mg Tab, 1 TAB PO DAILY 07/12/24 Colchicine (Colchicine) 0.6 Mg Cap 07/12/24 Allopurinol (Allopurinol) 300 Mg Tab, 1 TAB PO DAILY 07/12/24 Rabeprazole Sodium (Aciphex) 20 Mg Tab, 20 MG PO DAILY 08/16/12 Current Medications Current Medications Medications (Trade) Dose Ordered Sig/Filippo Route PRN Reason Start Time Stop Time Status Last Admin Ceftriaxone Sodium/Dextrose 50 ml @ 50 mls/hr DAILY IV 07/13/24 10:00 07/13/24 09:35 Enoxaparin Sodium (Lovenox) 40 mg DAILY SC 07/13/24 10:00 07/13/24 09:36 Famotidine (Pepcid Injection) 10 mg DAILY IV 07/12/24 22:00 07/13/24 09:35 Sodium Chloride 1,000 ml @ 100 mls/hr Q10H IV 07/12/24 20:30 Metoclopramide HCl (Reglan Injection) 10 mg Q6HPRN PRN IV NAUSEA / VOMITING 07/13/24 13:00 Review of Systems reviewed Vital Signs Vital Signs Date Time Temp Pulse Resp B/P (MAP) Pulse Ox O2 Delivery O2 Flow Rate FiO2 07/13/24 12:36 97.9 96 18 110/74 (86) 92 97.9 07/13/24 07:57 Room Air* 0 21 Labs/Diagnostic Data Labs Test 07/13/24 05:15 07/12/24 20:16 07/12/24 07:36 07/12/24 04:50 Range/Units White Blood Count 9.5 # 4.4-10.8 10^3/uL Red Blood Count 3.76 L 4.0-5.20 10^6/uL Hemoglobin 12.3 12.2-16.2 g/dL Hematocrit 36.7 # 36.0-46.0 % Mean Corpuscular Volume 97.7 80.0-100.0 fL Mean Corpuscular Hemoglobin 32.8 H 28.0-32.0 pg Mean Corpuscular Hemoglobin Concent 33.6 32.0-36.0 g/dL Red Cell Distribution Width 14.7 H 11.8-14.3 % Platelet Count 244 140-450 10^3/uL Mean Platelet Volume 9.1 6.9-10.8 fL Neutrophils (%) (Auto) 74.9 37.0-80.0 % Lymphocytes (%) (Auto) 15.1 10.0-50.0 % Monocytes (%) (Auto) 6.8 0.0-12.0 % Eosinophils (%) (Auto) 2.5 0.0-7.0 % Basophils (%) (Auto) 0.7 0.0-2.0 % Neutrophils # (Auto) 7.1 1.6-8.6 10 ^3/uL Lymphocytes # (Auto) 1.4 0.4-5.4 10 ^3/uL Monocytes # (Auto) 0.6 0-1.3 10 ^3/uL Eosinophils # (Auto) 0.2 0-0.8 10 ^3/uL Basophils # (Auto) 0.1 0-0.2 10 ^3/uL Nucleated Red Blood Cells 0.1 % Sodium Level 138 136-145 mmol/L Potassium Level 3.9 3.5-5.1 mmol/L Chloride Level 105 98-107 mmol/L Carbon Dioxide Level 27 20-31 mmol/L Anion Gap 6 5-15 Blood Urea Nitrogen 36 H 9-23 mg/dL Creatinine 2.02 H 0.550-1.02 mg/dL Glomerular Filtration Rate Calc 28 >90 mL/min BUN/Creatinine Ratio 17.8 10.0-20.0 Serum Glucose 126 H 74-106 mg/dL Calcium Level 9.2 8.7-10.4 mg/dL Magnesium Level 1.8 1.6-2.6 mg/dL Total Bilirubin 0.4 0.2-1.0 mg/dL Aspartate Amino Transferase (AST) 29 13-40 U/L Alanine Aminotransferase (ALT) 36 7-40 U/L Alkaline Phosphatase 132 H 46-116 U/L Total Protein 5.8 5.7-8.2 g/dL Albumin 3.6 3.2-4.8 g/dL Plasma/Serum Blood Alcohol < 3.0 <10 mg/dL Influenza Type A Antigen Negative Negative Influenza Type B Antigen Negative Negative SARS-CoV-2 Antigen (Rapid) Negative NEGATIVE Hemoglobin A1c 6.2 H <5.7 % A1C Thyroid Stimulating Hormone (TSH) 1.25 0.55-4.78 uIU/mL Test 07/11/24 17:41 07/11/24 13:46 Range/Units Urine Color Light-orange Yellow Urine Clarity Ex.turbid Clear Urine pH 6.0 5.0-9.0 Urine Specific [place] 1.016 1.001-1.035 Urine Protein 1+ H Negative Urine Ketones Negative Negative Urine Blood 1+ H Negative /uL Urine Nitrite 2+ H Negative Urine Bilirubin Negative Negative Urine Urobilinogen Normal Negative mg/dL Urine Leukocyte Esterase 3+ Negative /uL Urine RBC 7 0 - 4 /hpf Urine WBC 2657 0 - 5 /hpf Urine WBC Clumps Present None Seen /hpf Urine Squamous Epithelial Cells None seen <5 /hpf Urine Bacteria Few H None Seen /hpf Urine Creatinine 169.18 H 30.0-125.0 mg/dL Urine Protein/Creatinine Ratio 0.26 Urine Sodium 29 L 40-220 mmol/L Urine Glucose Normal Normal mg/dL Urine Total Protein 43.9 H 1-14 mg/dL Urine Test Negative Negative Beta HCG, Quantitative 4.2 1.5-4.2 mIU/mL Microbiology Date/Time Source Procedure Growth Status 07/11/24 17:41 Urine - Midstream Clean Catch Urine Culture - Preliminary Resulted Assessment left hydronephrosis reported with CT; appears to be mild pyelectasis no calyceal dilatation;UTI Plan/Recommendation ok to d/c on antibiotics Plan discussed with: Patient GARRETT RASMUSSEN MD Jul 13, 2024 16:20
[2024-07-13 16:49] VITALS: BP 107/60; PULSE 86; RESP 18; TEMP 98.2; O2SAT 100
--- NOTE | 2024-07-13 16:51 | DVHPN2 ---
Progress Note Date Seen: Jul 13, 2024 Medical Necessity Reason Pt with a Central, PICC or Fol: No Subjective Patient reports: No new complaints Objective vital signs Vital Sign Date Time Temp Pulse Resp B/P (MAP) Pulse Ox O2 Delivery O2 Flow Rate FiO2 07/13/24 12:36 97.9 96 18 110/74 (86) 92 97.9 07/13/24 07:57 Room Air* 0 21 Total Intake and Output 07/12/24 07/12/24 07/13/24 15:00 23:00 07:00 Intake Total 150 ml 525 ml 600 ml Balance 150 ml 525 ml 600 ml medications Current Medications Medications Dose Ordered Sig/Filippo Route Start Time Stop Time Status Last Admin Dose Admin Acetaminophen/ Hydrocodone Bitart 1 tab Q6HPRN PRN PO 07/11/24 23:45 07/12/24 21:09 1 TAB Morphine Sulfate 2 mg Q6HPRN PRN IV 07/11/24 23:45 Ondansetron HCl 4 mg Q6HPRN PRN IV 07/11/24 23:45 07/13/24 11:50 4 MG Allopurinol 300 mg DAILY PO 07/12/24 10:00 07/13/24 09:35 300 MG Ceftriaxone Sodium/Dextrose 50 ml @ 50 mls/hr DAILY IV 07/13/24 10:00 07/13/24 09:35 50 MLS/HR Enoxaparin Sodium 40 mg DAILY SC 07/13/24 10:00 07/13/24 09:36 40 MG Famotidine 10 mg DAILY IV 07/12/24 22:00 07/13/24 09:35 10 MG Sodium Chloride 1,000 ml @ 100 mls/hr Q10H IV 07/12/24 20:30 Metoclopramide HCl 10 mg Q6HPRN PRN IV 07/13/24 13:00 Examination Gen: Appears stated age, in no acute distress Lungs: Bilateral air entry Heart: RRR, normal S1 and S2 ext: No edema laboratory and microbiology Laboratory Tests 07/13/24 05:15 Test 07/13/24 05:15 Range/Units Serum Glucose 126 H 74-106 mg/dL Microbiology Date/Time Source Procedure Growth Status 07/11/24 17:41 Urine - Midstream Clean Catch Urine Culture - Preliminary Resulted Labs and/or images reviewed: Labs reviewed by me Problem List/Assessment/Plan Problem List/Assessment/Plan IMP: 1) Hemodynamically mediated acute kidney injury, vasomotor nephropathy- improving 2) possible cystitis/ urethritis 3) history of diabetes 4) CKD IIIa 5) HTN REC: - Continue IVF - Serial chemistry panels - Continue holding CAR I - Avoidance of nephrotoxins, including contrast studies if able - Patient to follow-up with Dr. Uziel Leon upon discharge. Case discussed with Dr. Machado Plan discussed with: Patient ARMANI WHEELER [facility] Jul 13, 2024 16:51
--- NOTE | 2024-07-13 16:56 | DVHPNRES ---
Progress Note Date Seen: Jul 13, 2024 Resident Creating Document: GUERLINE SCHMITZ RESIDENT Medical Necessity Reason Pt with a Central, PICC or Fol: No Subjective Review of Systems Patient is 59 years old female with past medical history of diabetes mellitus type 2, CKD stage, history of cervical carcinoma, status post hysterectomy, lymphedema of left leg, cholelithiasis, TIA, DVT of the left lower extremity 10 years before came with a complaint of left flank pain. Patient reported that she has been having left flank pain for last 4 days, sharp in nature, 10/10 in severity radiating to the left lower abdomen, no aggravating factor. Patient also endorsed dysuria, urgency and increased frequency. On further inquiry patient also reported had fever at home up to 100.8 F, had nausea and vomiting couple of times watery content, no blood. Initial lab workup revealed leukocytosis with WBC 14.0, serum creatinine 1.47> 2.73, serum bilirubin 1.3, AST 40, ALT 41, alkaline phosphatase 124 urinalysis revealed UTI with nitrite 2+, leukocyte esterase 3+, WBC 2657, RBC 7, bacteria few, uterine sodium 29, urine creatinine 169.18, urine total protein 3.9, protein creatinine ratio 0.26. Tested negative for COVID-19 and influenza type A and B. CT abdomen revealed- There is mild left renal hydronephrosis with fat stranding surrounding a left extrarenal pelvis. There is no evidence of nephrolithiasis or obstructing ureteral calculus. Findings May relate to recent passage of kidney stone. Clinical correlation is recommended. Diffuse hepatic steatosis. Cholelithiasis. Postsurgical changes in the retroperitoneum and pelvis likely related to prior lymph node dissection. Clinical correlation is recommended. Distal colon diverticulosis. Limited ultrasound revealed- Hepatic steatosis. Cholelithiasis without acute cholecystitis or biliary ductal dilatation. 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 Home medications: Allopurinol 300 mg once daily, colchicine 0.6 mg once every other day, rabeprazole 20 mg q.d., enalapril 20 mg q.d., furosemide 40 mg b.i.d. Patient was seen today at the bedside. Cardiovascular- deny acute chest pain or shortness of breath or cough or palpitation Respiratory- denies cough or short of breath or wheezing Gastrointestinal- denies any rectal bleeding, Musculoskeletal-denies acute joint swelling or tenderness or redness Neurological- denies acute dysarthria, dysphagia, change in vision Psychiatry- denies depression or SI or HI Skin- denies acute rash or purpura Patient was seen today for clinical evaluation. Labs and chart reviewed. Patient reports feeling better today. Patient is leukocytosis trending down to normal white cell count. Patient has a temperature of 100.2 last night. Patient was seen by urologist and mat tester, recommendation reviewed and appreciated. Patient on IV antibiotic ceftriaxone, tolerating well. Objective vital signs Vital Sign Date Time Temp Pulse Resp B/P (MAP) Pulse Ox O2 Delivery O2 Flow Rate FiO2 07/13/24 16:49 98.2 86 18 107/60 (76) 100 98.2 07/13/24 07:57 Room Air* 0 21 Total Intake and Output 07/12/24 07/12/24 07/13/24 15:00 23:00 07:00 Intake Total 150 ml 525 ml 600 ml Balance 150 ml 525 ml 600 ml medications Current Medications Medications Dose Ordered Sig/Filippo Route Start Time Stop Time Status Last Admin Dose Admin Acetaminophen/ Hydrocodone Bitart 1 tab Q6HPRN PRN PO 07/11/24 23:45 07/12/24 21:09 1 TAB Morphine Sulfate 2 mg Q6HPRN PRN IV 07/11/24 23:45 Ondansetron HCl 4 mg Q6HPRN PRN IV 07/11/24 23:45 07/13/24 11:50 4 MG Allopurinol 300 mg DAILY PO 07/12/24 10:00 07/13/24 09:35 300 MG Ceftriaxone Sodium/Dextrose 50 ml @ 50 mls/hr DAILY IV 07/13/24 10:00 07/13/24 09:35 50 MLS/HR Enoxaparin Sodium 40 mg DAILY SC 07/13/24 10:00 07/13/24 09:36 40 MG Famotidine 10 mg DAILY IV 07/12/24 22:00 07/13/24 09:35 10 MG Sodium Chloride 1,000 ml @ 100 mls/hr Q10H IV 07/12/24 20:30 Metoclopramide HCl 10 mg Q6HPRN PRN IV 07/13/24 13:00 Examination General examination- awake, alert, oriented, conversant HEENT- PEERLA, no acute nasal discharge Cardiovascular- S1-S2 audible, rate and rhythm regular, no murmur Respiratory- CTAB, no wheeze or rhonchi Gastrointestinal-nontender, bowel sound+. Nondistended Musculoskeletal-no acute joint swelling or tenderness or redness Renal system-left flank tenderness+, left mid abdominal tenderness Lower extremity- no leg edema Neurological- cranial nerves intact, no acute dysarthria or dysphagia Psychiatry- denies depression or SI or HI Skin- no acute rash or purpura laboratory and microbiology Laboratory Tests 07/13/24 05:15 Test 07/13/24 05:15 Range/Units Serum Glucose 126 H 74-106 mg/dL Microbiology Date/Time Source Procedure Growth Status 07/11/24 17:41 Urine - Midstream Clean Catch Urine Culture - Preliminary Resulted Problem List/Assessment/Plan Problem List/Assessment/Plan # sepsis likely due to pyelonephritis # pyelonephritis # MARY JANE on CKD stage IIIB # leukocytosis likely due to sepsis # transaminitis # hypomagnesemia # diabetes mellitus type 2 # DVT of the left lower extremity # TIA # history of cervical carcinoma, status post hysterectomy #mild left renal hydronephrosis # Cholelithiasis #Distal colon diverticulosis. #Hepatic steatosis. Status post nephrology and urology consult. -CT abdomen revealed- There is mild left renal hydronephrosis with fat stranding surrounding a left extrarenal pelvis. There is no evidence of nephrolithiasis or obstructing ureteral calculus. Findings May relate to recent passage of kidney stone. Clinical correlation is recommended. Diffuse hepatic steatosis. Cholelithiasis. Postsurgical changes in the retroperitoneum and pelvis likely related to prior lymph node dissection. . Distal colon diverticulosis. - Limited ultrasound revealed- Hepatic steatosis. Cholelithiasis without acute cholecystitis or biliary ductal dilatation. Continue ceftriaxone 2 g IV daily Continue normal saline 100 mL per hour daily Continue pain medication as prescribed Continue other management as prescribed Goals of care/advance care planning; FULL CODE; discussed with the patient >15 minutes PUD prophylaxis: Famotidine DVT prophylaxis: Lovenox Plan discussed with Dr. Hedrick, nursing staff, patient Total time spent on patient evaluation, chart review, assessment and plan, discussion discussion >30 minutes Plan discussed with: Patient Plan discussed with: Patient, Other (RN) My Orders My Orders Orders - GUERLINE SCHMITZ Procedure Category Date Status Time Drug Screen LAB 07/12/24 Logged 18:29 Enoxaparin Sodium PHA 07/13/24 In Process (Lovenox) 10:00 Famotidine Injection PHA 07/12/24 In Process (Pepcid Injection) 22:00 Metoclopramide PHA 07/13/24 In Process Injection (Reglan 13:00 Date of Service: Jul 13, 2024 Billing Provider: AZAEL HEDRICK MD Common Visit Codes: [id number] INP/OBS CARE(HIGH) GUERLINE SCHMITZ Jul 13, 2024 16:56 AZAEL HEDRICK MD Jul 14, 2024 10:34
[2024-07-13] MEDS: METOCLOPRAMIDE HCL 5MG/ml INJ 2ml VIAL IV PRN (20:08)
[2024-07-13 21:00] VITALS: BP 117/73; PULSE 82; RESP 18; TEMP 97.7; O2SAT 97
[2024-07-14 01:00] VITALS: BP 103/62; PULSE 81; RESP 18; TEMP 98.3; O2SAT 95
[2024-07-14 05:00] VITALS: BP 109/72; PULSE 76; RESP 18; TEMP 97.8; O2SAT 94
[2024-07-14 09:00] VITALS: BP 121/77; PULSE 87; RESP 16; TEMP 98.2; O2SAT 93
[2024-07-14 11:03] LABS: Basophils # (auto) 0.1 10 ^3/uL (0-0.2); Basophils % (auto) 0.9 % (0.0-2.0); Eosinophils # (auto) 0.4 10 ^3/uL (0-0.8); Eosinophils % (auto) 3.4 % (0.0-7.0); Hematocrit 36.9 % (36.0-46.0); Hemoglobin 12.1 g/dL (12.2-16.2); Lymphocytes # (auto) 2.1 10 ^3/uL (0.4-5.4); Lymphocytes % (auto) 18.4 % (10.0-50.0); Mean Corpuscular Hemoglobin 32.6 pg (28.0-32.0); Mean Corpuscular Hgb Conc. 32.7 g/dL (32.0-36.0); Mean Corpuscular Volume 99.5 fL (80.0-100.0); Monocytes # (auto) 0.8 10 ^3/uL (0-1.3); Monocytes % (auto) 7.3 % (0.0-12.0); Neutrophils # (auto) 7.9 10 ^3/uL (1.6-8.6); Nucleated Red Blood Cells % 0.2 %; Platelet Count (auto) 275 10^3/uL (140-450); Red Blood Cells 3.71 10^6/uL (4.0-5.20); White Blood Cell 11.4 10^3/uL (4.4-10.8)
[2024-07-14 11:29] LABS: Anion Gap 7 (5-15); Carbon Dioxide 25 mmol/L (20-31); Potassium 4.3 mmol/L (3.5-5.1); Sodium 140 mmol/L (136-145)
[2024-07-14] MEDS ORDERED: CEPH500C PO (11:29)
[2024-07-14 11:30] LABS: Calcium 9.8 mg/dL (8.7-10.4)
[2024-07-14 11:32] LABS: Chloride 108 mmol/L (98-107)
[2024-07-14 11:35] LABS: BUN/Creatinine Ratio 15.1 (10.0-20.0); Blood Urea Nitrogen 21 mg/dL (9-23)
[2024-07-14 11:36] LABS: Magnesium 1.8 mg/dL (1.6-2.6)
[2024-07-14 11:37] LABS: Glucose 130 mg/dL (74-106)
[2024-07-14 11:56] VITALS: TEMP 36.8
[2024-07-14 12:02] LABS: Platelet Estimate Adequate
--- NOTE | 2024-07-14 12:28 | DVHDSRES ---
Discharge Summary Date of Admission Resident Creating Document: ANTONIA PRESCOTT RESIDENT Jul 11, 2024 at 21:45 Date of Discharge: Jul 14, 2024 Admitting Diagnosis Left flank pain, pyelonephritis Labs/Diagnostic Data: Laboratory Results Test 07/14/24 10:30 07/13/24 05:15 07/12/24 20:16 07/12/24 07:36 White Blood Count 11.4 10^3/uL (4.4-10.8) Red Blood Count 3.71 10^6/uL (4.0-5.20) Hemoglobin 12.1 g/dL (12.2-16.2) Hematocrit 36.9 % (36.0-46.0) Mean Corpuscular Volume 99.5 fL (80.0-100.0) Mean Corpuscular Hemoglobin 32.6 pg (28.0-32.0) Mean Corpuscular Hemoglobin Concent 32.7 g/dL (32.0-36.0) Red Cell Distribution Width 15.0 % (11.8-14.3) Platelet Count 275 10^3/uL (140-450) Mean Platelet Volume 9.1 fL (6.9-10.8) Neutrophils (%) (Auto) 70.0 % (37.0-80.0) Lymphocytes (%) (Auto) 18.4 % (10.0-50.0) Monocytes (%) (Auto) 7.3 % (0.0-12.0) Eosinophils (%) (Auto) 3.4 % (0.0-7.0) Basophils (%) (Auto) 0.9 % (0.0-2.0) Neutrophils # (Auto) 7.9 10 ^3/uL (1.6-8.6) Lymphocytes # (Auto) 2.1 10 ^3/uL (0.4-5.4) Monocytes # (Auto) 0.8 10 ^3/uL (0-1.3) Eosinophils # (Auto) 0.4 10 ^3/uL (0-0.8) Basophils # (Auto) 0.1 10 ^3/uL (0-0.2) Nucleated Red Blood Cells 0.2 % Platelet Estimate Adequate Sodium Level 140 mmol/L (136-145) Potassium Level 4.3 mmol/L (3.5-5.1) Chloride Level 108 mmol/L (98-107) Carbon Dioxide Level 25 mmol/L (20-31) Anion Gap 7 (5-15) Blood Urea Nitrogen 21 mg/dL (9-23) Creatinine 1.39 mg/dL (0.550-1.02) Glomerular Filtration Rate Calc 44 mL/min (>90) BUN/Creatinine Ratio 15.1 (10.0-20.0) Serum Glucose 130 mg/dL (74-106) Calcium Level 9.8 mg/dL (8.7-10.4) Magnesium Level 1.8 mg/dL (1.6-2.6) Total Bilirubin 0.4 mg/dL (0.2-1.0) Aspartate Amino Transferase (AST) 29 U/L (13-40) Alanine Aminotransferase (ALT) 36 U/L (7-40) Alkaline Phosphatase 132 U/L (46-116) Total Protein 5.8 g/dL (5.7-8.2) Albumin 3.6 g/dL (3.2-4.8) Plasma/Serum Blood Alcohol < 3.0 mg/dL (<10) Influenza Type A Antigen Negative (Negative) Influenza Type B Antigen Negative (Negative) SARS-CoV-2 Antigen (Rapid) Negative (NEGATIVE) Test 07/12/24 04:50 07/11/24 17:41 07/11/24 13:46 Hemoglobin A1c 6.2 % A1C (<5.7) Thyroid Stimulating Hormone (TSH) 1.25 uIU/mL (0.55-4.78) Urine Color Light-orange (Yellow) Urine Clarity Ex.turbid (Clear) Urine pH 6.0 (5.0-9.0) Urine Specific [place] 1.016 (1.001-1.035) Urine Protein 1+ (Negative) Urine Ketones Negative (Negative) Urine Blood 1+ /uL (Negative) Urine Nitrite 2+ (Negative) Urine Bilirubin Negative (Negative) Urine Urobilinogen Normal mg/dL (Negative) Urine Leukocyte Esterase 3+ /uL (Negative) Urine RBC 7 /hpf (0 - 4) Urine WBC 2657 /hpf (0 - 5) Urine WBC Clumps Present /hpf (None Seen) Urine Squamous Epithelial Cells None seen /hpf (<5) Urine Bacteria Few /hpf (None Seen) Urine Creatinine 169.18 mg/dL (30.0-125.0) Urine Protein/Creatinine Ratio 0.26 Urine Sodium 29 mmol/L (40-220) Urine Glucose Normal mg/dL (Normal) Urine Total Protein 43.9 mg/dL (1-14) Urine Test Negative (Negative) Beta HCG, Quantitative 4.2 mIU/mL (1.5-4.2) Other Laboratory Tests 07/14/24 10:30 Brief Hx & Hospital Course: Patient Name: Melissa Sutton Age: 59 years Gender: Female Melissa Sutton, a 59-year-old female with a significant past medical history, presented with a 4-day history of sharp left flank pain rated 10/10, radiating to the left lower abdomen. She also reported dysuria, urgency, increased frequency, fever up to 100.8F, nausea, and vomiting. Initial lab workup revealed leukocytosis, elevated serum creatinine, and urinalysis consistent with a UTI. Imaging studies showed mild left renal hydronephrosis, diffuse hepatic steatosis, and cholelithiasis. Treatment: IV Fluids: Administered for hydration. IV Antibiotics: Ceftriaxone 2 mg IV daily. Consultations: Nephrology and urology consultations were obtained. Urology cleared the patient for discharge with oral antibiotics. Discharge Medications: Cephalexin 500 mg t.i.d. for 10 days Allopurinol 300 mg once daily Colchicine 0.6 mg once every other day Rabeprazole 20 mg once daily Enalapril 20 mg once daily Furosemide 40 mg b.i.d. Follow-Up: Follow up with primary care physician (PCP) in 1-2 weeks. Monitor for any signs of recurrent infection or worsening symptoms. Continue home medications as prescribed. Discharge Condition: The patient is hemodynamically stable with normal vital signs. She is instructed to complete the course of antibiotics and follow up with her PCP. Instructions: Maintain adequate hydration. Monitor blood glucose levels regularly due to diabetes. Avoid alcohol and maintain a healthy diet to manage hepatic steatosis. Report any new or worsening symptoms to the healthcare provider immediately. Consults/Reason for consult Nephrology Urology Condition at Discharge: Stable Final Diagnosis/Problems List # sepsis likely due to pyelonephritis # Acute cystitis likely prerenal hemodynamically mediated VMN # pyelonephritis # MARY JANE on CKD stage IIIB # leukocytosis likely due to sepsis # transaminitis # hypomagnesemia # diabetes mellitus type 2 # DVT of the left lower extremity # TIA # history of cervical carcinoma, status post hysterectomy #mild left renal hydronephrosis # Cholelithiasis # Ruled out cholecystitis #Distal colon diverticulosis. #Hepatic steatosis. Discharge Disposition: Home SNF Discharge Will this Physician continue t: No Discharge Instruct/Medications Diet: Consistent carbohydrate Activity: No Restrictions, As Tolerated Follow Up/Referral: Follow up with PCP in 1-2 weeks Medications: Cephalexin po 500 mg t.i.d. for 10 days Resume home medications Discharge Statement: "Patient was advised to return to the ER or call 911 if any headaches, dizziness, shortness of breath, chest pain, abdominal pain, bleeding, fevers, or worsening of medical condition. Patient was counseled about treatment plan, medications, possible side effects, patientverbalized understanding. All questions were answered to the best of my ability. This discharge took greater then 30 minutes in planning, reviewing documentation, counseling the patient, and discussing with other team members." ASSESSMENT ASSESSMENT Assessment # sepsis likely due to pyelonephritis # Acute cystitis likely prerenal hemodynamically mediated VMN # pyelonephritis # MARY JANE on CKD stage IIIB # leukocytosis likely due to sepsis # transaminitis # hypomagnesemia # diabetes mellitus type 2 # DVT of the left lower extremity # TIA # history of cervical carcinoma, status post hysterectomy #mild left renal hydronephrosis # Cholelithiasis # Ruled out cholecystitis #Distal colon diverticulosis. #Hepatic steatosis. Date of Service: Jul 14, 2024 Billing Provider: DESTINEY AWAN MD Common Visit Codes: 20653-GGO/OBS DISCH DAY >30min ANTONIA PRESCOTT RESIDENT Jul 14, 2024 12:28 DESTINEY AWAN MD Jul 15, 2024 16:59
== END 2024-07-14 13:01 | disposition home or self-care (01) | DRG 720 ==
LOC: ER 11:42 → OVERFLOW 21:45 → TELE-WESTW 07-12 09:31
PROVIDERS: ADMIT Internal Medicine; ATTEND Internal Medicine
DX: A41.9 Sepsis, unspecified organism (principal); N17.0 Acute kidney failure with tubular necrosis; E11.22 Type 2 diabetes mellitus with diabetic chronic kidney disease; G45.9 Transient cerebral ischemic attack, unspecified; N13.6 Pyonephrosis; E83.42 Hypomagnesemia; I12.9 Hypertensive chronic kidney disease with stage 1 through stage 4 chronic kidney disease, or unspecified chronic kidney disease; E66.01 Morbid (severe) obesity due to excess calories; M10.9 Gout, unspecified; J45.909 Unspecified asthma, uncomplicated; K76.0 Fatty (change of) liver, not elsewhere classified; K80.20 Calculus of gallbladder without cholecystitis without obstruction; K21.9 Gastro-esophageal reflux disease without esophagitis; R74.01 Elevation of levels of liver transaminase levels; N18.32 Chronic kidney disease, stage 3b; Z83.3 Family history of diabetes mellitus; Z85.41 Personal history of malignant neoplasm of cervix uteri; Z82.5 Family history of asthma and other chronic lower respiratory diseases; Z82.0 Family history of epilepsy and other diseases of the nervous system; Z80.0 Family history of malignant neoplasm of digestive organs; Z90.710 Acquired absence of both cervix and uterus; Z79.4 Long term (current) use of insulin; Z68.44 Body mass index [BMI] 60.0-69.9, adult
CPT/HCPCS: 36415; 74176; 76705; 80048; 80053; 80320; 81001; 81025; 82570; 83036; 83735; 84156; 84300; 84443; 84702; 85025; 87040; 87086; 87426; 87804; 93306; 97163; G0378; J1885; J2405; J3490